=== PATIENT | female | born 1980 | race Caucasian/White ===

== ENCOUNTER 2017-03-08 06:20 | Emergency (ER) | payer MEDICARE ==
[~2017-03-08] VITALS: Ht 157.5 cm; Wt 63.6 kg
[~2017-03-08 06:20] MED LIST: CYMBALTA 60MG60 MG; ESTRACE 1MG1 MG/TAB PO; ESTRACE2 MG PO; LEVOXYL0.075 MG PO; MACRODANTIN100; MAXALT10 MG PO; MUCINEX 60600 MG/TA1 PO; MULTI VITAMINS1 TAB PO; NORCO 325 MG-51 TAB PO; OMNICEF 300MG300 MG PO; PERCOCET 325 MG1 TA2 PO; PREDNISONE20 MG PO; SOMA250 MG PO; TOPAMAX200 MG PO; VITAMIN D 400400 IU PO; ZITHROMAX500 M2 PO; ZOFRAN 4MG T4 MG/TAB PO; ZOFRAN ODT4 MG PO; ZOMIG5 MG PO
[2017-03-08 06:22] VITALS: TEMP 98.2
[2017-03-08 07:15] LABS: BASO % 0.2 % (0.0-2.0); GRAN # 4.7 (1.4-6.5); HEMATOCRIT 42.5 % (37.0-47.0); HEMOGLOBIN 14.2 g/dl (12.5-16.0); LYMPH % 17.3 % (20.0-51.0); MEAN CELL VOLUME 83 fl (80.0-100.0); MEAN CORPUSCULAR HEMOGLOBIN 28 pg (27.0-31.0); MEAN CORPUSCULAR HGB CONC 33 g/dl (33.0-37.0); MEAN PLATELET VOLUME 11.2 fl (7.4-10.4); MONO % 0.2 % (1.7-9.3); PLATELET COUNT 283 K/mm3 (130-400); WHITE BLOOD COUNT 5.7 K/mm3 (4.8-10.8)
[2017-03-08 07:18] LABS: ADJUSTED CALCIUM 10.2 mg/dL (8.4-10.2); ALBUMIN 4.6 gm/dL (3.5-5.0); BILIRUBIN,TOTAL 0.6 mg/dL (0.0-1.0); CALCIUM 10.7 mg/dL (8.4-10.2); CREATININE, serum 0.74 mg/dL (0.52-1.25); TOTAL PROTEIN 7.1 gm/dL (6.4-8.2)
[2017-03-08] MEDS ORDERED: ZOFRAN ODT4 MG PO (07:39)
[2017-03-08 08:14] VITALS: BP 102/53; PULSE 103
== END 2017-03-08 08:16 | disposition home or self-care (01) ==
LOC: COL.ER 06:20
PROVIDERS: Family Medicine
DX: G43.909 Migraine, unspecified, not intractable, without status migrainosus (principal); E86.0 Dehydration; K52.9 Noninfective gastroenteritis and colitis, unspecified; G40.909 Epilepsy, unspecified, not intractable, without status epilepticus
CPT/HCPCS: J0595; J1885; J2405; J7030

== ENCOUNTER 2017-04-29 22:33 | Observation (INO) | payer MEDICARE ==
[~2017-04-29] VITALS: Ht 157.5 cm; Wt 63.6 kg
[2017-04-29] MEDS ORDERED: BACTRIM DS 8001 TAB PO (22:40)
[2017-04-29 23:13] LABS: BASO % 0.1 % (0.0-2.0); EOS % 0.2 % (0-4.0); GRAN # 11.5 (1.4-6.5); GRAN % 89.2 % (42.2-75.2); HEMATOCRIT 42.1 % (37.0-47.0); HEMOGLOBIN 13.4 g/dl (12.5-16.0); LYMPH # 1.1 (1.2-3.4); LYMPH % 8.6 % (20.0-51.0); MEAN CELL VOLUME 88 fl (80.0-100.0); MEAN CORPUSCULAR HEMOGLOBIN 28 pg (27.0-31.0); MEAN CORPUSCULAR HGB CONC 32 g/dl (33.0-37.0); MEAN PLATELET VOLUME 10.6 fl (7.4-10.4); MONO # 0.1 (0.1-0.6); PLATELET COUNT 284 K/mm3 (130-400); RED BLOOD COUNT 4.79 M/mm3 (4.10-5.30); REDCELL DISTRIBUTION WIDTH-CV 13.3 % (11.5-14.5); WHITE BLOOD COUNT 12.9 K/mm3 (4.8-10.8)
[2017-04-29 23:22] LABS: ALBUMIN 4.7 gm/dL (3.5-5.0); BILIRUBIN,TOTAL 0.7 mg/dL (0.0-1.0); CALCIUM 9.6 mg/dL (8.4-10.2); CREATININE, serum 0.76 mg/dL (0.52-1.25); POTASSIUM 3.7 mmol/L (3.4-5.0); TOTAL PROTEIN 7.4 gm/dL (6.4-8.2)
[2017-04-29 23:38] LABS: PROLACTIN 86.9 ng/mL (3.0-18.6)
[2017-04-30] MEDS ORDERED: SYNTHROID0.075 MG/T PO (04:05)
[2017-04-30 04:06] LABS: PH 8 (5-8); SQUAMOUS EPITHELIAL 0-2 /hpf; URINE APPEARANCE Clear; URINE BACTERIA None Seen /hpf; URINE BILIRUBIN Negative (NEGATIVE); URINE BLOOD Negative (NEGATIVE); URINE COLOR Yellow; URINE GLUCOSE Negative (NEGATIVE); URINE KETONE Negative (NEGATIVE); URINE RBC None Seen /hpf; URINE UROBILINOGEN Negative (NEGATIVE); URINE WBC 0-2 /hpf
[2017-04-30 08:27] VITALS: BP 115/60; PULSE 95; TEMP 98.7
[2017-04-30 12:00] VITALS: BP 98/59; PULSE 87; TEMP 98.3
[2017-04-30 13:55] LABS: MEAN CELL VOLUME 86 fl (80.0-100.0); MEAN CORPUSCULAR HGB CONC 33 g/dl (33.0-37.0); MEAN PLATELET VOLUME 10.6 fl (7.4-10.4); PLATELET COUNT 216 K/mm3 (130-400); RED BLOOD COUNT 3.97 M/mm3 (4.10-5.30); REDCELL DISTRIBUTION WIDTH-CV 13.1 % (11.5-14.5); WHITE BLOOD COUNT 6.9 K/mm3 (4.8-10.8)
[2017-04-30 13:56] LABS: HEMATOCRIT 34.2 % (37.0-47.0); HEMOGLOBIN 11.3 g/dl (12.5-16.0); MEAN CORPUSCULAR HEMOGLOBIN 28 pg (27.0-31.0)
[2017-04-30 16:18] VITALS: BP 106/61; PULSE 97; TEMP 99.2
[2017-04-30 20:00] VITALS: BP 113/62; PULSE 92; TEMP 98.4
[2017-04-30 23:33] VITALS: BP 102/52; PULSE 82; TEMP 97.9
[2017-05-01 04:00] VITALS: BP 107/72; PULSE 80; TEMP 97.6
[2017-05-01 10:50] LABS: CALCIUM 8.4 mg/dL (8.4-10.2); CREATININE, serum 0.71 mg/dL (0.52-1.25); POTASSIUM 3.7 mmol/L (3.4-5.0)
[2017-05-01 11:21] VITALS: BP 96/50; PULSE 77; TEMP 98.4
[2017-05-01] MEDS ORDERED: MIDRIN 325 MG-11 CAP PO (14:03)
[2017-05-01] MEDS ORDERED: KEPPRA 500MG500 MG PO (14:04)
[2017-05-01] MEDS ORDERED: IMITREX 6M6 MG/0.5 M SQ (14:06)
[2017-05-01] MEDS ORDERED: MAG-OX 400400 MG/TAB PO (14:06)
[2017-05-01] MEDS ORDERED: OMNICEF 300MG300 MG PO (14:08)
[2017-05-01 15:54] VITALS: BP 98/57; PULSE 73; TEMP 97.5
== END 2017-05-01 19:17 | disposition home or self-care (01) ==
LOC: COL.ER 22:33 → MEDICAL 04-30 02:00
PROVIDERS: Family Medicine; Nurse Practitioner Family; Physician Assistant
DX: R56.9 Unspecified convulsions (principal); G43.909 Migraine, unspecified, not intractable, without status migrainosus; R11.0 Nausea; N39.0 Urinary tract infection, site not specified; E03.9 Hypothyroidism, unspecified; F43.10 Post-traumatic stress disorder, unspecified; E55.9 Vitamin D deficiency, unspecified; Z98.84 Bariatric surgery status; K27.9 Peptic ulcer, site unspecified, unspecified as acute or chronic, without hemorrhage or perforation
CPT/HCPCS: 99239; G0378; J0595; J0696; J1170; J1200; J1885; J1953; J2060; J2405; J3030; J7030

== ENCOUNTER → 2017-08-31 | Outpatient (CLI) | payer MEDICARE ==
[~2017-08-31] MED LIST changes: +BACTRIM DS 8001 TAB PO; +IMITREX 6M6 MG/0.5 M SQ; +KEPPRA 500MG500 MG PO; +MAG-OX 400400 MG/TAB PO; +MIDRIN 325 MG-11 CAP PO; +SYNTHROID0.075 MG/T PO
[2017-08-31 13:40] LABS: AMPHETAMINE URINE NEGATIVE; BARBITURATES URINE NEGATIVE; BENZODIAZEPINES URINE POSITIVE; BUPRENORPHINE URINE NEGATIVE; METHADONE URINE NEGATIVE; OPIATES URINE NEGATIVE; OXYCODONE URINE NEGATIVE; PHENCYCLIDINE URINE NEGATIVE; PROPOXYPHENE URINE NEGATIVE; THC CANNABINOIDS URINE NEGATIVE
== END ==
LOC: COL.LAB 13:04
PROVIDERS: Counselor
DX: Z13.89 Encounter for screening for other disorder (principal); Z79.899 Other long term (current) drug therapy

== ENCOUNTER 2017-11-28 09:15 | Emergency (ER) | payer MEDICARE ==
[~2017-11-28] VITALS: Ht 157.5 cm; Wt 59.1 kg
[2017-11-28 10:17] LABS: INFLUENZA A NEGATIVE; INFLUENZA B NEGATIVE
[2017-11-28 11:26] VITALS: BP 121/71; PULSE 106; TEMP 98
== END 2017-11-28 11:27 | disposition home or self-care (01) ==
LOC: COL.ER 09:15
PROVIDERS: Emergency Medicine
DX: J11.1 Influenza due to unidentified influenza virus with other respiratory manifestations (principal); G43.909 Migraine, unspecified, not intractable, without status migrainosus; Z86.73 Personal history of transient ischemic attack (TIA), and cerebral infarction without residual deficits; Z90.710 Acquired absence of both cervix and uterus; Z98.84 Bariatric surgery status; Z98.890 Other specified postprocedural states
CPT/HCPCS: J1885

== ENCOUNTER → 2018-04-04 | Outpatient (CLI) | payer MEDICARE ==
[~2018-04-04] MED LIST changes: +IBU800 M1 PO
== END ==
LOC: MHCPAIN 09:36
DX: G89.29 Other chronic pain (principal); M47.817 Spondylosis without myelopathy or radiculopathy, lumbosacral region; M53.3 Sacrococcygeal disorders, not elsewhere classified
CPT/HCPCS: G0463

== ENCOUNTER → 2018-04-04 | Outpatient (CLI) | payer MEDICARE ==
[~2018-04-04] MED LIST changes: -IBU800 M1 PO
== END ==
LOC: MHCPAIN 09:39
DX: G89.29 Other chronic pain (principal); M47.817 Spondylosis without myelopathy or radiculopathy, lumbosacral region; M53.3 Sacrococcygeal disorders, not elsewhere classified
CPT/HCPCS: G0463

== ENCOUNTER 2018-04-17 08:58 | Emergency (ER) | payer MEDICARE ==
[~2018-04-17] VITALS: Ht 157.5 cm; Wt 63.6 kg
[2018-04-17 09:12] VITALS: BP 131/57; TEMP 97.2
[2018-04-17] MEDS ORDERED: IBU800 M1 PO (10:00)
[2018-04-17 10:17] VITALS: PULSE 94
== END 2018-04-17 10:16 | disposition home or self-care (01) ==
LOC: COL.ER 08:58
DX: L55.0 Sunburn of first degree (principal); G43.909 Migraine, unspecified, not intractable, without status migrainosus; Z86.73 Personal history of transient ischemic attack (TIA), and cerebral infarction without residual deficits; Z90.710 Acquired absence of both cervix and uterus; Z98.84 Bariatric surgery status; Z98.890 Other specified postprocedural states
CPT/HCPCS: J1885; J2405

== ENCOUNTER → 2018-04-20 | Outpatient (CLI) | payer MEDICARE ==
[~2018-04-20] MED LIST changes: +IBU800 M1 PO
== END ==
LOC: MHCPAIN 08:14
DX: M47.817 Spondylosis without myelopathy or radiculopathy, lumbosacral region (principal); M51.46 Schmorl's nodes, lumbar region
CPT/HCPCS: J1040; Q9967

== ENCOUNTER → 2018-05-19 | Outpatient (CLI) | payer MEDICARE | LOC: MHCPAIN 08:49 | DX: G89.29 Other chronic pain (principal); M47.817 Spondylosis without myelopathy or radiculopathy, lumbosacral region; M53.3 Sacrococcygeal disorders, not elsewhere classified; M54.9 Dorsalgia, unspecified | CPT/HCPCS: G0463 ==

== ENCOUNTER → 2018-06-09 | Outpatient (CLI) | payer MEDICARE | LOC: COL.RAD 14:42 | DX: N30.00 Acute cystitis without hematuria (principal); Z90.49 Acquired absence of other specified parts of digestive tract; Z90.710 Acquired absence of both cervix and uterus; Z98.84 Bariatric surgery status ==

== ENCOUNTER → 2018-06-12 | Outpatient (CLI) | payer MEDICARE | LOC: MC.RAD 09:22 | DX: Z12.31 Encounter for screening mammogram for malignant neoplasm of breast (principal); Z98.82 Breast implant status ==

== ENCOUNTER 2018-06-28 14:30 | Outpatient (RCR) | payer MEDICARE | END 2018-07-23 | disposition still patient (30) | LOC: WSPT | DX: M47.817 Spondylosis without myelopathy or radiculopathy, lumbosacral region (principal); M53.3 Sacrococcygeal disorders, not elsewhere classified | CPT/HCPCS: G8978-GP; G8979-GP ==

== ENCOUNTER → 2018-07-18 | Outpatient (CLI) | payer MEDICARE | LOC: MHCPAIN 13:22 | DX: G89.29 Other chronic pain (principal); M47.817 Spondylosis without myelopathy or radiculopathy, lumbosacral region; M54.16 Radiculopathy, lumbar region; M53.3 Sacrococcygeal disorders, not elsewhere classified | CPT/HCPCS: G0463 ==

== ENCOUNTER → 2018-07-20 | Outpatient (CLI) | payer MEDICARE | LOC: MHCPAIN 09:28 | DX: M47.24 Other spondylosis with radiculopathy, thoracic region (principal) ==

== ENCOUNTER → 2018-07-26 | Outpatient (CLI) | payer MEDICARE | LOC: MHCPAIN 08:21 | DX: G89.29 Other chronic pain (principal); M47.817 Spondylosis without myelopathy or radiculopathy, lumbosacral region; M53.3 Sacrococcygeal disorders, not elsewhere classified; M47.814 Spondylosis without myelopathy or radiculopathy, thoracic region; M54.9 Dorsalgia, unspecified | CPT/HCPCS: G0463 ==

== ENCOUNTER 2018-08-02 08:56 | Emergency (ER) | payer MEDICARE ==
[~2018-08-02] VITALS: Ht 157.5 cm; Wt 63.6 kg
[2018-08-02 09:08] VITALS: BP 115/68; TEMP 97.8
[2018-08-02 11:22] VITALS: PULSE 68
== END 2018-08-02 11:22 | disposition home or self-care (01) ==
LOC: COL.ER 08:56
DX: G43.909 Migraine, unspecified, not intractable, without status migrainosus (principal); E03.9 Hypothyroidism, unspecified; Z79.52 Long term (current) use of systemic steroids
CPT/HCPCS: J0595; J1885; J2405

== ENCOUNTER → 2018-08-10 | Outpatient (CLI) | payer MEDICARE | LOC: MHCPAIN 09:36 | DX: M47.814 Spondylosis without myelopathy or radiculopathy, thoracic region (principal); M54.16 Radiculopathy, lumbar region ==

== ENCOUNTER → 2018-08-14 | Outpatient (CLI) | payer MEDICARE | LOC: MHCPAIN 08:22 | DX: G89.29 Other chronic pain (principal); M47.817 Spondylosis without myelopathy or radiculopathy, lumbosacral region; M47.814 Spondylosis without myelopathy or radiculopathy, thoracic region | CPT/HCPCS: G0463 ==

== ENCOUNTER → 2018-08-17 | Outpatient (CLI) | payer MEDICARE | LOC: MHCPAIN 08:35 | DX: M47.814 Spondylosis without myelopathy or radiculopathy, thoracic region (principal) | CPT/HCPCS: J1100; J2250; J3010 ==

== ENCOUNTER → 2018-08-24 | Outpatient (CLI) | payer MEDICARE | LOC: MHCPAIN 08:38 | DX: M47.814 Spondylosis without myelopathy or radiculopathy, thoracic region (principal); M54.9 Dorsalgia, unspecified | CPT/HCPCS: J1100; J2250; J3010 ==

== ENCOUNTER → 2018-10-23 | Outpatient (CLI) | payer MEDICARE | LOC: MHCPAIN 08:21 | DX: G89.29 Other chronic pain (principal); M47.817 Spondylosis without myelopathy or radiculopathy, lumbosacral region; M53.3 Sacrococcygeal disorders, not elsewhere classified; M47.814 Spondylosis without myelopathy or radiculopathy, thoracic region | CPT/HCPCS: G0463 ==

== ENCOUNTER 2018-11-18 18:49 | Inpatient (IN) | payer MEDICARE ==
[~2018-11-18] VITALS: Ht 152.4 cm; Wt 60.9 kg
[2018-11-18 21:37] LABS: ALBUMIN 3.5 gm/dL (3.5-5.0); BASO % 0.9 % (0.0-2.0); BILIRUBIN,TOTAL 0.2 mg/dL (0.0-1.0); CALCIUM 8.7 mg/dL (8.4-10.2); CREATININE, serum 0.58 mg/dL (0.52-1.25); EOS # 0.1 (0.0-0.7); EOS % 1.9 % (0-4.0); GRAN # 2.6 (1.4-6.5); HEMOGLOBIN 10.9 g/dl (12.5-16.0); LYMPH % 23.9 % (20.0-51.0); MEAN CELL VOLUME 85 fl (80.0-100.0); MEAN CORPUSCULAR HEMOGLOBIN 29 pg (27.0-31.0); MEAN CORPUSCULAR HGB CONC 34 g/dl (33.0-37.0); MEAN PLATELET VOLUME 10.7 fl (7.4-10.4); MONO # 0.4 (0.1-0.6); MONO % 8.5 % (1.7-9.3); PLATELET COUNT 123 K/mm3 (130-400); RED BLOOD COUNT 3.77 M/mm3 (4.10-5.30); REDCELL DISTRIBUTION WIDTH-CV 13.8 % (11.5-14.5)
[2018-11-18 21:53] LABS: PROLACTIN 17.5 ng/mL (3.0-18.6)
[2018-11-19] VITALS (464 sets, daily range): BP systolic 91–131; BP diastolic 55–72; PULSE 55–85; TEMP 97.9–98.5; O2SAT 83–100
[2018-11-19] MEDS ORDERED: ZOMIG5 MG PO (01:53)
[2018-11-19] MEDS ORDERED: LEXAPRO20 MG PO (01:53)
[2018-11-19] MEDS ORDERED: NATURAL IRON65 MG PO (04:37)
[2018-11-19] MEDS ORDERED: VITAMIN B COMPL1 SGL PO (04:37)
[2018-11-19] MEDS ORDERED: PROAMATINE10 MG PO (05:48)
--- NOTE | 2018-11-19 09:00 | NUR ---
Pt arrived to room at this time via cart with ER staff. Awake and alert, able to answer all orientation qeustions but appears tired and c/o pain to R back of eye and headache area. Will get oriented to room and continue to monitor.
[2018-11-19 09:18] LABS: BASO % 0.3 % (0.0-2.0); GRAN # 2.1 (1.4-6.5); GRAN % 71.6 % (42.2-75.2); HEMATOCRIT 39.4 % (37.0-47.0); LYMPH # 0.7 (1.2-3.4); MEAN CELL VOLUME 86 fl (80.0-100.0); MEAN CORPUSCULAR HEMOGLOBIN 28 pg (27.0-31.0); MEAN CORPUSCULAR HGB CONC 33 g/dl (33.0-37.0); MEAN PLATELET VOLUME 11.7 fl (7.4-10.4); MONO # 0.2 (0.1-0.6); MONO % 6.1 % (1.7-9.3); PLATELET COUNT 193 K/mm3 (130-400); RED BLOOD COUNT 4.56 M/mm3 (4.10-5.30); REDCELL DISTRIBUTION WIDTH-CV 13.3 % (11.5-14.5)
[2018-11-19 09:22] LABS: ALBUMIN 4.1 gm/dL (3.5-5.0); BILIRUBIN,TOTAL 0.3 mg/dL (0.0-1.0); CALCIUM 9.6 mg/dL (8.4-10.2); CREATININE, serum 0.56 mg/dL (0.52-1.25); TOTAL PROTEIN 6.9 gm/dL (6.4-8.2)
[2018-11-19 09:38] LABS: HEMOGLOBIN 12.9 g/dl (12.5-16.0)
[2018-11-19 09:44] LABS: COLLECTION METHOD CLEAN CATCH
[2018-11-19 09:52] LABS: MUCOUS Present /lpf; PH 7 (5-8); URINE APPEARANCE Hazy; URINE BACTERIA None Seen /hpf; URINE BILIRUBIN Negative (NEGATIVE); URINE BLOOD Negative (NEGATIVE); URINE COLOR Yellow; URINE GLUCOSE Negative (NEGATIVE); URINE KETONE Negative (NEGATIVE); URINE LEUKOCYTE ESTERASE Negative (NEGATIVE); URINE NITRATE Negative (NEGATIVE); URINE PROTEIN(semi-quant) 2+ (NEGATIVE); URINE UROBILINOGEN Negative (NEGATIVE)
--- NOTE | 2018-11-19 10:48 | NUR ---
Plan to return home with Friend Awilda's support who will also transport. Pt reports that she is apart of the safe home programs and has a PPOF against her ex-. PT indicated that the shoe caser is Vikki at the crisis center . SW left message for case work who will follow-up on Tuesday. DPOA is Jennifer Roblero . Patient safety check complete, pt admits to SII approx a month ago. Denies any SII currently. Denies any HII recent or remote. PT indicated that she has an active therapist that she works with for depression dx and symp and reports recent down swing in depression onset. Neuro Dr. Smith. Pt reports that she has two young daughters that she shares custody with the ex-spouse and the children are currently with him. Pt indicated that they have a [place] location [place] [employer]. Patient does not present as a harm to herself or others and reports that she does not want to . Recommended that pt creates safety plan with primary therapist. Pt reports that she use [facility] for RX. PCP Dr. Encinas, and use a cane-prn and glasses. SW will continue to follow if additonal needs arise.
--- NOTE | 2018-11-19 13:15 | NUR ---
REPORT RECEIVED FROM LEV RN
--- NOTE | 2018-11-19 16:23 | NUR ---
REPORT GIVEN TO JENNIFER ADHIKARI
--- NOTE | 2018-11-19 17:30 | NUR ---
Patient is resting in bed. She arrived to floor via wheel chair. Denies nausea at this time. Stated still havine headache. Oriented patient to room. She has some visitors with her. no other chagnes at this time. Call light within reach.
--- NOTE | 2018-11-19 20:03 | NUR ---
At 1951 pt. started having seizure. Started noted by family friend at bedside. Family friend reported she noticed twitching to rt. eye and then became stiff. This nurse entered the room at 1952, ativan given IV. Remained with pt. through the seizure. Seizure ended at 1956. Pt. woke at 1999, was slightly disoriented. Pt. resting now, vitals stable.
--- NOTE | 2018-11-19 20:05 | NUR ---
Pt. resting in bed with friend at bedside. Pt. is alert and drowsy. Pt. in a postictal state at this time. Pt. has been oriented, but takes time to reorient after seizure activity. Shift assessment complete. Pt. reports headache pain. Will give meds per orders. Pt. denies further needs, call light within reach.
--- NOTE | 2018-11-19 20:34 | NUR ---
Pt. started having seizure activity at 2019. Dr. Brandon notified. Dr. Brandon gave orders to hold ativan if O2 sat remains stable, and monitor seizure. This seizure activity lasted for 7 minutes. Pt. wakes after seizure to verbal stimuli but is very foggy. Pt. is able to identify orientation. Will continue to monitor.
--- NOTE | 2018-11-19 21:10 | NUR ---
At 2100, Third episode of seizure activity started. Pt. O2 sat remains stable. Seizure activity lasted 8 minutes. Will monitor.
[2018-11-20 05:03] VITALS: BP 118/69; PULSE 64; TEMP 97.2
--- NOTE | 2018-11-20 05:57 | NUR ---
Pt. has slept well through the night. Pt. has not had any more seizure activity through the night. Pt. remains A&OX3. IV to lt. hand remains patent. Pt. denies further needs, call light within reach.
[2018-11-20] MEDS ORDERED: KEPPRA1000 MG PO (07:28)
[2018-11-20 07:33] VITALS: BP 103/67; PULSE 80; TEMP 98
--- NOTE | 2018-11-20 10:02 | NUR ---
Patient resting in bed with a friend at bedside. Patient able to given her date of . Did ask what town she was in. She seems "out of it". Talks minimally. Falls asleep easy. She did shower this am & brush her teeth. New IV attempted by Jennifer DA SILVA-no success. Hospitalist team notified & patient switched to oral Keppra. She took her meds. Patient does report a headache. 05/30-tylenol for pain. Patient friend ordered her a yogurt for breakfast. Will monitor.
[2018-11-20 11:07] VITALS: BP 100/57; PULSE 64; TEMP 98.3
--- NOTE | 2018-11-20 13:54 | NUR ---
SW met with patient during clinical rounding. Patient will dc today after a psych consult. There are no other identified discharge needs at this time. SW will follow for any recommendations from Psych.
--- NOTE | 2018-11-20 14:28 | NUR ---
First visit from the ice carver. No needs right now.
--- NOTE | 2018-11-20 14:51 | NUR ---
Patient resting in bed. Friend at bedside. Patient has no appetite. Tylenol for Headahce. Patient minimally conversive. Awaiting to round
[2018-11-20] MEDS ORDERED: PRISTIQ 50 MG T50 MG PO (16:02)
[2018-11-20 16:03] VITALS: BP 116/73; PULSE 86; TEMP 98.6
--- NOTE | 2018-11-20 17:22 | NUR ---
Patient ready for discharge. rounded, orders obtained. Hospitalist made aware of recommendations. Discharge orders obtained. Patient reviewed all new medications & new scripts. She has a very supportive friend at bedside who will take her home & take care of her. Patient belongings from safe retreieved by domestic housekeeper & given to patient. Patient glad to be going home, we reviewed all follow up appts. Patient wheeled out.
== END 2018-11-20 17:27 | disposition home or self-care (01) | DRG 101 ==
LOC: COL.ER 18:49 → ICU 22:57 → SURG 11-19 16:23
PROVIDERS: Nurse Practitioner Family; Physician Assistant; ADMIT Internal Medicine
DX: G40.409 Other generalized epilepsy and epileptic syndromes, not intractable, without status epilepticus (principal); D61.818 Other pancytopenia; G43.909 Migraine, unspecified, not intractable, without status migrainosus; F41.1 Generalized anxiety disorder; F41.0 Panic disorder [episodic paroxysmal anxiety]; E55.9 Vitamin D deficiency, unspecified; F43.10 Post-traumatic stress disorder, unspecified; Z98.84 Bariatric surgery status; D69.6 Thrombocytopenia, unspecified
CPT/HCPCS: OP; 99223-AI; 99239; J1100; J1170; J1200; J1885; J1953; J2060; J2405; J3030; J7030

== ENCOUNTER 2019-01-05 17:17 | Inpatient (IN) | payer MEDICARE ==
[2019-01-05] VITALS (103 sets, daily range): BP systolic 106; BP diastolic 51; PULSE 103; O2SAT 99–100
[~2019-01-05] VITALS: Ht 152.4 cm; Wt 65.1 kg
[~2019-01-05 17:17] MED LIST changes: +KEPPRA1000 MG PO; +LEXAPRO20 MG PO; +NATURAL IRON65 MG PO; +PRISTIQ 50 MG T50 MG PO; +PROAMATINE10 MG PO; +VITAMIN B COMPL1 SGL PO
[2019-01-05 17:43] LABS: BASO # 0.1 (0.0-0.2); BASO % 0.4 % (0.0-2.0); GRAN # 22.2 (1.4-6.5); GRAN % 92.4 % (42.2-75.2); HEMATOCRIT 45.9 % (37.0-47.0); HEMOGLOBIN 15.2 g/dl (12.5-16.0); LYMPH # 0.5 (1.2-3.4); MEAN CELL VOLUME 87 fl (80.0-100.0); MEAN CORPUSCULAR HEMOGLOBIN 29 pg (27.0-31.0); MEAN CORPUSCULAR HGB CONC 33 g/dl (33.0-37.0); MEAN PLATELET VOLUME 11.4 fl (7.4-10.4); MONO # 1.1 (0.1-0.6); MONO % 4.5 % (1.7-9.3); PLATELET COUNT 262 K/mm3 (130-400); RED BLOOD COUNT 5.28 M/mm3 (4.10-5.30); REDCELL DISTRIBUTION WIDTH-CV 13.5 % (11.5-14.5)
[2019-01-05 17:45] LABS: INR 1.3 (0.8-3.0)
[2019-01-05 17:50] LABS: ALANINE AMINOTRANSFERASE 713 U/L (9-52); ALBUMIN 4.5 gm/dL (3.5-5.0); ALKALINE PHOSPHATASE 136 U/L (50-136); ANION GAP 15 mmol/L (7-16); BILIRUBIN,TOTAL 0.5 mg/dL (0.0-1.0); BLOOD UREA NITROGEN 27 mg/dL (7-17); CALCIUM 9.9 mg/dL (8.4-10.2); CARBON DIOXIDE 23 mmol/L (22-30); CHLORIDE 104 mmol/L (98-107); CREATINE KINASE 709 U/L (30-135); CREATININE, serum 1.14 mg/dL (0.52-1.25); GLUCOSE 146 mg/dL (74-106); POTASSIUM 4.1 mmol/L (3.4-5.0); SODIUM 142 mmol/L (137-145); TOTAL PROTEIN 8.3 gm/dL (6.4-8.2)
[2019-01-05 17:53] LABS: ALCOHOL(ethanol),MEDICAL < 10 mg/dL
[2019-01-05 17:57] LABS: AST,SGOT 1224 U/L (15-37)
[2019-01-05 18:05] LABS: TROPONIN-I < 0.012 ng/mL (0.000-0.035)
[2019-01-05] MEDS ORDERED: PROAMATINE10 MG PO (18:05)
[2019-01-05 18:10] LABS: PROLACTIN 13.3 ng/mL (3.0-18.6)
[2019-01-05 18:14] LABS: ACETAMINOPHEN < 10 ug/mL (10-30); SALICYLATE < 1.0 mg/dL
[2019-01-05 18:26] LABS: COLLECTION METHOD CLEAN CATCH
[2019-01-05 18:38] LABS: TRICYCLIC ANTIDEPRESS URINE NEGATIVE
[2019-01-05 18:42] LABS: AMORPHOUS CRYSTAL Present /uL; MUCOUS Present /lpf; PH 5 (5-8); URINE APPEARANCE Cloudy; URINE BACTERIA Moderate /hpf; URINE BILIRUBIN Negative (NEGATIVE); URINE BLOOD 2+ (NEGATIVE); URINE COLOR Amber; URINE GLUCOSE Negative (NEGATIVE); URINE KETONE Trace (NEGATIVE); URINE LEUKOCYTE ESTERASE Negative (NEGATIVE); URINE NITRATE Positive (NEGATIVE); URINE PROTEIN(semi-quant) 2+ (NEGATIVE)
[2019-01-05 18:46] LABS: TSH w REFLEX 0.557 uIU/mL (0.465-4.680)
[2019-01-05 19:02] LABS: ARTERIAL BLD GAS O2 SATURATION 90.9 % (92-100); ARTERIAL BLD GAS TCO2 CT 21.1; ARTERIAL BLOOD GAS BASE EXCESS -7.4 (-2-2); ARTERIAL BLOOD GAS HCO3 19.7 meq/L (22-26); ARTERIAL BLOOD GAS PCO2 46.3 mmHg (35-45); ARTERIAL BLOOD GAS PO2 65.2 mmHg (80-100); ARTERIAL BLOOD GAS pH 7.25 (7.35-7.45)
[2019-01-05 20:50] LABS: ARTERIAL BLD GAS O2 SATURATION 95.4 % (92-100); ARTERIAL BLD GAS TCO2 CT 21.1; ARTERIAL BLOOD GAS BASE EXCESS -6.7 (-2-2); ARTERIAL BLOOD GAS HCO3 19.8 meq/L (22-26); ARTERIAL BLOOD GAS PCO2 42.8 mmHg (35-45); ARTERIAL BLOOD GAS PO2 79.6 mmHg (80-100); ARTERIAL BLOOD GAS pH 7.28 (7.35-7.45)
[2019-01-05 21:52] LABS: ARTERIAL BLD GAS O2 SATURATION 98.7 % (92-100); ARTERIAL BLOOD GAS BASE EXCESS -8.6 (-2-2); ARTERIAL BLOOD GAS HCO3 17.8 meq/L (22-26); ARTERIAL BLOOD GAS pH 7.27 (7.35-7.45)
[2019-01-05 21:53] LABS: ARTERIAL BLOOD GAS PO2 256.1 mmHg (80-100)
--- NOTE | 2019-01-05 22:03 | NUR ---
Patient arrived to the unit via stretcher. Patient intubated prior to arrival. Assisted to transfer to ICU bed and attach to all monitors.
--- NOTE | 2019-01-05 22:16 | NUR ---
ABG called to Kiarra BENNETT she said to turn rate up to 22 and fio2 down to 60%. Pt then transported to ICU on transport vent and put on ventilator at current settings. Report given to ICU RT.
--- NOTE | 2019-01-05 22:30 | NUR ---
Dr. Marks and anesthesia here at bedside to place central line and Arterial line. Nurse at bedside to assist.
[2019-01-05 23:36] LABS: ARTERIAL BLD GAS O2 SATURATION 98.3 % (92-100); ARTERIAL BLD GAS TCO2 CT 15.1; ARTERIAL BLOOD GAS BASE EXCESS -8.4 (-2-2); ARTERIAL BLOOD GAS HCO3 14.4 meq/L (22-26); ARTERIAL BLOOD GAS PCO2 22.7 mmHg (35-45); ARTERIAL BLOOD GAS pH 7.42 (7.35-7.45)
[2019-01-05 23:37] LABS: ARTERIAL BLOOD GAS PO2 183.3 mmHg (80-100)
--- NOTE | 2019-01-05 23:50 | NUR ---
Called E-care nurse, Shelley, to report latest ABG results. Can titrate Fi-02 as needed. Also received order to cancel KUB to check 0G placement as that was done with chest x-ray.
[2019-01-06] VITALS (1439 sets, daily range): BP systolic 80–136; BP diastolic 4–587; PULSE 71–120; TEMP 97.8–100.2; O2SAT 63–100
--- NOTE | 2019-01-06 03:54 | NUR ---
BP'S TRENDING DOWN; CURRENTLY RANGING 80'S OVER 40'S. FENTANYL DECREASED PATIENT APPEARS WELL SEDATED AND COMFORTABLE. CALLED E-CARE TO REPORT HYPOTENSION. NOTIFIED THAT [facility] HAS AN ORDER FOR LEVOPHED BUT THIS NURSE WANTED TO VERIFY IF A NS BOLOS MIGHT BE ATTEMPTED BEFORE STARTING LEVOPHED. AWAITING FURTHER ORDERS.
--- NOTE | 2019-01-06 05:10 | NUR ---
Patient becoming restless in bed; attempting to sit up and reach hand towards the tube. Attempted to re-orient at this time, although patient continued to attempt to sit up and reach for tube several more times. Shook head yes when asked if she was in pain. Increased fentanyl drip and sedation for comfort.
[2019-01-06 05:13] LABS: MEAN CELL VOLUME 87 fl (80.0-100.0); MEAN CORPUSCULAR HGB CONC 33 g/dl (33.0-37.0); MEAN PLATELET VOLUME 11.3 fl (7.4-10.4); PLATELET COUNT 207 K/mm3 (130-400); RED BLOOD COUNT 3.76 M/mm3 (4.10-5.30); REDCELL DISTRIBUTION WIDTH-CV 13.6 % (11.5-14.5)
[2019-01-06 05:19] LABS: HEMATOCRIT 32.6 % (37.0-47.0); MEAN CORPUSCULAR HEMOGLOBIN 29 pg (27.0-31.0)
[2019-01-06 05:22] LABS: HEMOGLOBIN 10.8 g/dl (12.5-16.0)
--- NOTE | 2019-01-06 05:34 | NUR ---
Notified E-care of patient's WBC value. Currenlty on several Abx. No further orders at this time.
[2019-01-06 05:35] LABS: ARTERIAL BLD GAS O2 SATURATION 98.3 % (92-100); ARTERIAL BLOOD GAS BASE EXCESS -10.8 (-2-2); ARTERIAL BLOOD GAS HCO3 13.2 meq/L (22-26); ARTERIAL BLOOD GAS PCO2 24.2 mmHg (35-45); ARTERIAL BLOOD GAS pH 7.36 (7.35-7.45)
[2019-01-06 05:35] LABS: ALBUMIN 2.8 gm/dL (3.5-5.0); BILIRUBIN,TOTAL 0.3 mg/dL (0.0-1.0); CALCIUM 8.1 mg/dL (8.4-10.2); CREATININE, serum 0.6 mg/dL (0.52-1.25); MAGNESIUM 1.8 mg/dL (1.6-2.3); PHOSPHOROUS 2.2 mg/dL (2.5-4.5); POTASSIUM 3.4 mmol/L (3.4-5.0); TOTAL PROTEIN 5.3 gm/dL (6.4-8.2)
[2019-01-06 05:36] LABS: ARTERIAL BLOOD GAS PO2 177.8 mmHg (80-100)
[2019-01-06 06:22] LABS: BAND 65 % (0-10); HYPOCHROMIA 1+; LYMPHOCYTE 5 % (20.0-51.0); METAMYELOCYTE 1 % (0-0); NEUTROPHILS 25 % (42.0-75.2); PLATELET ESTIMATE NORMAL (NORMAL)
[2019-01-06 07:10] LABS: BILIRUBIN,DIRECT 0.2 mg/dL (0.0-0.4)
--- NOTE | 2019-01-06 07:10 | NUR ---
Reveived bedside report from JENNIFER Worthy. Patient resting peacfully in bed. Medications and drips varified.
[2019-01-06 07:11] LABS: BILIRUBIN UNCONJUGATED 0.1 mg/dL (0.0-1.1)
--- NOTE | 2019-01-06 16:54 | NUR ---
Patient seemed restless so we asked visitors to wait in the waiting room to give her time to settle down and rest.
--- NOTE | 2019-01-06 17:04 | NUR ---
Did not do sedation vacation at this time. PAtient very restless. HAd to increase sedation at this time.
[2019-01-06 17:34] LABS: ARTERIAL BLD GAS O2 SATURATION 97.4 % (92-100); ARTERIAL BLD GAS TCO2 CT 15.3; ARTERIAL BLOOD GAS BASE EXCESS -9.5 (-2-2); ARTERIAL BLOOD GAS HCO3 14.5 meq/L (22-26); ARTERIAL BLOOD GAS PCO2 26.1 mmHg (35-45); ARTERIAL BLOOD GAS PO2 107.6 mmHg (80-100); ARTERIAL BLOOD GAS pH 7.36 (7.35-7.45)
[2019-01-06 18:02] LABS: CALCIUM 8.4 mg/dL (8.4-10.2); CREATININE, serum 0.49 mg/dL (0.52-1.25); POTASSIUM 3.3 mmol/L (3.4-5.0)
--- NOTE | 2019-01-06 19:05 | NUR ---
Gave report to JENNIFER Worthy. Patients father was in the room participating in report. Patient was resting quietly in bed.
--- NOTE | 2019-01-06 19:10 | NUR ---
Received bedside report from JENNIFER Moreira and JENNIFER Nguyen. Patient care received. Patient's father at bedside. No concerns at this time.
--- NOTE | 2019-01-06 20:00 | NUR ---
Assessment complete; sedation decreased due to moderate sedation level. Responsive to painful stimuli and oral suctioning, however not following commands at this time. Will continue to monitor.
--- NOTE | 2019-01-06 22:17 | NUR ---
Patient restless in bed attempting to sit up and pull at ET tube. This nurse noted that the left wrist restrain was bloody. After removing restraint observed that Arterial line had come out of the artery and was leaking. A small hematoma was felt around the site. Line was removed and pressure held until bleeding stopped. Pulse palpated and hands warm with cap refill < 3. E-ICU notified. No further orders at this time.
--- NOTE | 2019-01-06 22:33 | NUR ---
RN WAS DOING ORAL CARE WITH HER ASSESMENT. PATIENT SUCTIONED FOR SCANT AMOUNT OF TANISH SECRETIONS.
--- NOTE | 2019-01-06 23:30 | NUR ---
Patient occasionally observed attempting to sit up and will raise hands towards mouth. Re-oriented at these times and and reminded that restraints are for safety to protect airway.
[2019-01-07] VITALS (1395 sets, daily range): BP systolic 94–116; BP diastolic 48–83; PULSE 80–126; TEMP 97.5–100; O2SAT 55–100
[2019-01-07 05:10] LABS: ARTERIAL BLD GAS TCO2 CT 18.8; ARTERIAL BLOOD GAS BASE EXCESS -4.3 (-2-2); ARTERIAL BLOOD GAS HCO3 18.1 meq/L (22-26); ARTERIAL BLOOD GAS PCO2 25.2 mmHg (35-45); ARTERIAL BLOOD GAS pH 7.47 (7.35-7.45)
[2019-01-07 05:28] LABS: BASO # 0.1 (0.0-0.2); BASO % 0.4 % (0.0-2.0); GRAN % 87.5 % (42.2-75.2); LYMPH # 0.8 (1.2-3.4); LYMPH % 3.9 % (20.0-51.0); MEAN CELL VOLUME 84 fl (80.0-100.0); MEAN CORPUSCULAR HGB CONC 35 g/dl (33.0-37.0); MEAN PLATELET VOLUME 11.8 fl (7.4-10.4); MONO # 0.7 (0.1-0.6); MONO % 3.4 % (1.7-9.3); PLATELET COUNT 178 K/mm3 (130-400); RED BLOOD COUNT 3.37 M/mm3 (4.10-5.30); REDCELL DISTRIBUTION WIDTH-CV 13.8 % (11.5-14.5)
[2019-01-07 05:29] LABS: HEMATOCRIT 28.3 % (37.0-47.0); HEMOGLOBIN 9.8 g/dl (12.5-16.0); MEAN CORPUSCULAR HEMOGLOBIN 29 pg (27.0-31.0)
[2019-01-07 05:40] LABS: ALBUMIN 2.4 gm/dL (3.5-5.0); BILIRUBIN,TOTAL 0.1 mg/dL (0.0-1.0); CALCIUM 8.5 mg/dL (8.4-10.2); CREATININE, serum 0.49 mg/dL (0.52-1.25); MAGNESIUM 2.1 mg/dL (1.6-2.3); PHOSPHOROUS 1.7 mg/dL (2.5-4.5); POTASSIUM 3.5 mmol/L (3.4-5.0)
--- NOTE | 2019-01-07 05:51 | NUR ---
WBC critical this am. Physician not notified at this time as lab is trending downwards.
--- NOTE | 2019-01-07 05:58 | NUR ---
PER E CARE RESPIRATORY RATE DECREASED TO 16 AFTER ABG RESULTS.
[2019-01-07 06:08] LABS: BAND 38 % (0-10); LYMPHOCYTE 8 % (20.0-51.0); NEUTROPHILS 53 % (42.0-75.2); PLATELET ESTIMATE NORMAL (NORMAL)
--- NOTE | 2019-01-07 06:10 | NUR ---
Recommended by E-ICU to change draw time of valproic acid to immediately before dose to be given. Dose scheduled for noon. Lab draw changed to 11:30.
--- NOTE | 2019-01-07 07:05 | NUR ---
Bedside report given to JENNIFER Nguyen and JENNIFER Moreira. Patient care transfered.
--- NOTE | 2019-01-07 07:15 | NUR ---
Received bedside report from JENNIFER Worthy. Patient was resting quietly in bed. Medications varified.
--- NOTE | 2019-01-07 08:00 | NUR ---
Patient unable to squeeze hands when asked but able to shake head yes that she is in pain. PAtient followed commands when I told her to rest her head back on the pillow. Propofol increased at this time due to increase in aggitation.
[2019-01-07 08:16] LABS: ARTERIAL BLD GAS O2 SATURATION 96.4 % (92-100); ARTERIAL BLD GAS TCO2 CT 18.4; ARTERIAL BLOOD GAS BASE EXCESS -6.5 (-2-2); ARTERIAL BLOOD GAS HCO3 17.5 meq/L (22-26); ARTERIAL BLOOD GAS PCO2 29.7 mmHg (35-45); ARTERIAL BLOOD GAS PO2 91.5 mmHg (80-100); ARTERIAL BLOOD GAS pH 7.39 (7.35-7.45)
--- NOTE | 2019-01-07 09:09 | NUR ---
Had a discussion with Dr. Marks regarding the patients aggitation this morning via phone. Infomred him we had to increase the propofol and fenanyl. When I did that the patients blood pressure dropped to 95/53 with a MAP of 65. Dr. Marks ordered me to give a 500 mL bolus of LR and then check CVP. Dr. Wasserman said he would arrive in 35-45 minutes to speak with patients family.
--- NOTE | 2019-01-07 09:20 | NUR ---
Called Dr. Marks to update him on the patients status. Informed him of the patients low blood pressures, 95/53 and 95/45. Dr. Marks ordered me to give a 500 mL fluid bolus of LR and then check the CVP. When checked CVP was 7. I informed Dr. Marks and he ordered to give another 500 mL fluid bolus of LR over 2 hours. Will continue to monitor patients condition.
--- NOTE | 2019-01-07 09:54 | NUR ---
Checked OG residual, 35 mL. Advanced to 38 mL/hr, goal rate.
--- NOTE | 2019-01-07 10:30 | NUR ---
Decreased to prepare for weening trial for extubation.
--- NOTE | 2019-01-07 10:30 | NUR ---
DC'd due to weening trial for extubation.
--- NOTE | 2019-01-07 10:50 | NUR ---
DC'd to prepare for extubation.
--- NOTE | 2019-01-07 11:30 | NUR ---
PT EXTUBATED TO 3 LPM NC PER W/O INCIDENT. PT FRIEND AT BEDSIDE.
--- NOTE | 2019-01-07 12:00 | NUR ---
Patient extubated at 1132 per orders and restraints dc'd. All sedation and tube feeds remain off. Patient restless and confused following extubation. Placed on 3L nasal cannula and will continue to monitor patient.
--- NOTE | 2019-01-07 13:45 | NUR ---
Patient very restless at this time. Called Dr. Snowden and updated her on the patients status. Dr. Snowden ordered us to give her 2mg of ativan. Asked family and friends to leave the room at this time. Will continue to monitor patient.
[2019-01-07 13:58] LABS: ARTERIAL BLD GAS TCO2 CT 21.5; ARTERIAL BLOOD GAS BASE EXCESS -2.6 (-2-2); ARTERIAL BLOOD GAS HCO3 20.6 meq/L (22-26); ARTERIAL BLOOD GAS PCO2 30.2 mmHg (35-45); ARTERIAL BLOOD GAS PO2 52.8 mmHg (80-100); ARTERIAL BLOOD GAS pH 7.45 (7.35-7.45)
--- NOTE | 2019-01-07 19:05 | NUR ---
Report given to Zaynab RODRIGUEZ and care transfered.
--- NOTE | 2019-01-07 19:05 | NUR ---
Received report from JENNIFER Moreira and JENNIFER Nguyen; patient care received. Patient's friends at bedside. Patient is alert but confused. Unable to follow commands to squeeze hands. Unable to verbalize a coherent thought or word, except to say [place], when asked where she lives. Patient mumbles or does not respond at all to most verbal questions. Patient observed multiple times reaching up towards face to remove nasal cannula. Attempted to re-orient at this time. Will continue to monitor. Bed alarm activated.
[2019-01-07 19:18] LABS: MAGNESIUM 1.9 mg/dL (1.6-2.3); PHOSPHOROUS 2.6 mg/dL (2.5-4.5); POTASSIUM 3.4 mmol/L (3.4-5.0)
--- NOTE | 2019-01-07 23:30 | NUR ---
Patients respirations noted to be increasing into the 40's. Continue to be confused with periods of restlesness. Will frequently pull at SPo2 monitor and remove nasal cannula. RT notified and at bedside. Lung sounds coarse in all kaur but not different from previous assessment. 02 ranging 92-95% on 5L. Called e-ICU to update. Recommended to administer 2nd dose of ativan and assess if this is effective at decreasing respirations and restlessness.
[2019-01-08] VITALS (1347 sets, daily range): BP systolic 89–137; BP diastolic 48–99; PULSE 59–109; TEMP 97.8–99.1; O2SAT 73–100
--- NOTE | 2019-01-08 00:14 | NUR ---
Dr. Zabala E-ICU physician updated via telephone. Recommended starting Precedex drip. Called Dr. Marks to ask permission to start this medication; received permission per Dr. Marks.
--- NOTE | 2019-01-08 02:54 | NUR ---
E-Icu notified regarding patient's continued tachypnea. On precedex drip at lowest dose. 02 saturations have maintained around 95% on 5L. BP's have been stable. Nurse to notify Dr. Zaabla and will camera in on patient.
--- NOTE | 2019-01-08 03:15 | NUR ---
RESULTS OF ABG CALLED TO E CARE. PT PLACED ON BIPAP, REPEAT ABG TO BE DRAWN IN 1 HOUR.
[2019-01-08 03:16] LABS: ARTERIAL BLD GAS O2 SATURATION 91.2 % (92-100); ARTERIAL BLD GAS TCO2 CT 22.3; ARTERIAL BLOOD GAS BASE EXCESS -1.3 (-2-2); ARTERIAL BLOOD GAS HCO3 21.4 meq/L (22-26); ARTERIAL BLOOD GAS PCO2 29.7 mmHg (35-45); ARTERIAL BLOOD GAS PO2 59.5 mmHg (80-100); ARTERIAL BLOOD GAS pH 7.48 (7.35-7.45)
--- NOTE | 2019-01-08 03:32 | NUR ---
Patient will occasionally mumble incoherently or make motions to sit up and move extremities, however will not follow commands. Responts to painful stimuli. Currenlty on lowest dose of precedex. E-ICU updated.
--- NOTE | 2019-01-08 03:35 | NUR ---
Patient placed on Bipap. Dr. Zabala on monitor to observe patient. Will obtain ABG in one hour.
[2019-01-08 04:46] LABS: ARTERIAL BLD GAS O2 SATURATION 96.7 % (92-100); ARTERIAL BLD GAS TCO2 CT 24.4; ARTERIAL BLOOD GAS BASE EXCESS 0.3 (-2-2); ARTERIAL BLOOD GAS HCO3 23.4 meq/L (22-26); ARTERIAL BLOOD GAS PCO2 32.5 mmHg (35-45); ARTERIAL BLOOD GAS PO2 98.1 mmHg (80-100); ARTERIAL BLOOD GAS pH 7.48 (7.35-7.45)
[2019-01-08 05:25] LABS: HEMOGLOBIN 10.5 g/dl (12.5-16.0); MEAN CELL VOLUME 83 fl (80.0-100.0); MEAN CORPUSCULAR HEMOGLOBIN 29 pg (27.0-31.0); MEAN CORPUSCULAR HGB CONC 35 g/dl (33.0-37.0); MEAN PLATELET VOLUME 11.6 fl (7.4-10.4); PLATELET COUNT 179 K/mm3 (130-400); RED BLOOD COUNT 3.65 M/mm3 (4.10-5.30); REDCELL DISTRIBUTION WIDTH-CV 14.1 % (11.5-14.5)
[2019-01-08 05:27] LABS: HEMATOCRIT 30.1 % (37.0-47.0)
[2019-01-08 05:37] LABS: ALBUMIN 2.7 gm/dL (3.5-5.0); BILIRUBIN,TOTAL 0.2 mg/dL (0.0-1.0); CALCIUM 8.5 mg/dL (8.4-10.2); CREATININE, serum 0.47 mg/dL (0.52-1.25); PHOSPHOROUS 3.5 mg/dL (2.5-4.5); POTASSIUM 3.8 mmol/L (3.4-5.0); TOTAL PROTEIN 5.4 gm/dL (6.4-8.2)
[2019-01-08 05:44] LABS: BAND 21 % (0-10); LYMPHOCYTE 7 % (20.0-51.0); NEUTROPHILS 69 % (42.0-75.2)
[2019-01-08 05:45] LABS: PLATELET ESTIMATE NORMAL (NORMAL); SCHISTOCYTES 1+
--- NOTE | 2019-01-08 06:14 | NUR ---
Has had multiple incontinent stools this evening. Called [facility]pt[facility]list and received order to send a C-diff sample. Sample sent at this time.
--- NOTE | 2019-01-08 06:18 | NUR ---
E-icu nurse notified regarding critical WBC count of 20.6.
--- NOTE | 2019-01-08 07:24 | NUR ---
Bedside report received from JENNIFER Worthy.
--- NOTE | 2019-01-08 07:30 | NUR ---
Bedside report given to JENNIFER Luther. Patient care transfered.
--- NOTE | 2019-01-08 07:30 | NUR ---
Assessment complete, patient resting in bed on bipap, tachypneic, patient won't open her eyes, does squeeze left hand when asked, when asked to squeeze right hand, patient states "I don't want to, it hurts." Call light within reach.
--- NOTE | 2019-01-08 08:36 | NUR ---
Message left for Sandra, patient's friend/DPOA regarding need for reintubation.
--- NOTE | 2019-01-08 09:08 | NUR ---
Patient taken to CT via bed on monitor, RT Ronnie with this RN.
--- NOTE | 2019-01-08 09:35 | NUR ---
Back from CT.
--- NOTE | 2019-01-08 09:55 | NUR ---
Dr. Marks here to intubate patient.
--- NOTE | 2019-01-08 09:58 | NUR ---
0958- 60 mg propofol prior to intubation. 1001- 60 mg Succinylcholine given. 1002 - 7.5 ETT, 23 at the lip. 1005- 40 mg propofol given. 1015- Propofol gtt initiated at 5mcg/kg/min=17.7ml/hr.
--- NOTE | 2019-01-08 10:22 | NUR ---
ASSISTED DR. ALEMAN WITH INTUBATION. PT INTUBATED WITH 7.5ETT. PT TOLERATED WELL.
--- NOTE | 2019-01-08 11:03 | NUR ---
WILTON attended clinical rounding. Patient is intubated so unable to discuss discharge plan. According to the chart and patients last admission her PCP is Dr Katie Encinas and she obtains her medications from [facility]. patient has a PPOF from her ex who she shares custody of her children with. She also has a rn case manager hospice, Vikki, at the crisis center. Patients DPOA is Jennifer Annika however we do not have a copy on the chart, wilton discussed this with Jennifer who said she will run to patients house and find it to bring to the hosptial. Jennifer reports patient has an adult son, Yung Espinoza [phone], that we are able to update. Nurse informed. WILTON will continue to follow. is looking into transfer to [facility] if accepted.
[2019-01-08 11:31] LABS: ARTERIAL BLD GAS O2 SATURATION 96.5 % (92-100); ARTERIAL BLD GAS TCO2 CT 22.3; ARTERIAL BLOOD GAS BASE EXCESS -1.1 (-2-2); ARTERIAL BLOOD GAS HCO3 21.5 meq/L (22-26); ARTERIAL BLOOD GAS PO2 91.6 mmHg (80-100); ARTERIAL BLOOD GAS pH 7.49 (7.35-7.45)
--- NOTE | 2019-01-08 12:21 | NUR ---
PT'S SETTINGS CHANGED PER DR. ALEMAN AT THIS TIME.
--- NOTE | 2019-01-08 12:52 | NUR ---
Dr. Marks notified of hypotension, discussed propofol gtt decreased to 2.5 mcg/kg/min.
--- NOTE | 2019-01-08 13:08 | NUR ---
Patients friend is unable to find DPOA paperwork. SW called patients pcp dr Encinas and left vm as well as dr Gautam office who does not have it. SW called Crisis center where patient has reported she has a transplant case manager. They are looking for DPOA and trust and estates attorney information and will contact pediatric social worker back. Patients father is on the way however she has two adult children that are not in contact with patient that would need to make medical decisions if DPOA is not found. SW will continue to follow.
--- NOTE | 2019-01-08 15:45 | NUR ---
Nurse reports that patients friend Jennifer found the DPOA at [place] and brought a copy here. SW will continue to follow.
--- NOTE | 2019-01-08 15:45 | NUR ---
Copy of DPOA paperwork placed on chart.
--- NOTE | 2019-01-08 17:15 | NUR ---
Patient coughing against ventilator, shakes head "no" when asked to open her eyes or squeeze my hands, finally does squeeze this RN hands, left flask carrier stronger than right, never does open her eyes. LAMBETR Flores at bedside.
--- NOTE | 2019-01-08 18:30 | NUR ---
Librado Moore CRNA here for LP. Time out performed. Patient repositioned to left side.
--- NOTE | 2019-01-08 19:00 | NUR ---
Bedside report given to JENNIFER Worthy.
[2019-01-08 19:56] LABS: GLUCOSE,CSF 51 mg/dL (40-70); TOTAL PROTEIN,CSF 29 mg/dL (15-45)
[2019-01-08 20:25] LABS: CSF APPEARANCE CLEAR; CSF COLOR COLORLESS; CSF RBC 4 /mm3 (0-0)
[2019-01-08 20:26] LABS: CSF MONONUCLEAR 0 % (70-100); CSF POLYMORPHONUCLEAR 0 % (0-6)
--- NOTE | 2019-01-08 20:55 | NUR ---
Dr. Duran at bedside to see patient.
--- NOTE | 2019-01-08 23:30 | NUR ---
Patient now opening eyes spontaneously. Able to squeeze nurse's hands on command. Observed moving all extremities. When asked questions patient would onlyshake head no, and did not appear to be resonding appropriately to the questions. Will continue to monitor.
[2019-01-09] VITALS (1437 sets, daily range): BP systolic 105–124; BP diastolic 63–90; PULSE 83–112; TEMP 98.3–99.5; O2SAT 72–100
[2019-01-09 05:38] LABS: HEMOGLOBIN 10.6 g/dl (12.5-16.0); MEAN CELL VOLUME 83 fl (80.0-100.0); MEAN CORPUSCULAR HEMOGLOBIN 28 pg (27.0-31.0); MEAN CORPUSCULAR HGB CONC 34 g/dl (33.0-37.0); MEAN PLATELET VOLUME 11.8 fl (7.4-10.4); PLATELET COUNT 210 K/mm3 (130-400); RED BLOOD COUNT 3.73 M/mm3 (4.10-5.30); REDCELL DISTRIBUTION WIDTH-CV 13.9 % (11.5-14.5)
[2019-01-09 05:45] LABS: ARTERIAL BLD GAS O2 SATURATION 97.7 % (92-100); ARTERIAL BLD GAS TCO2 CT 24.8; ARTERIAL BLOOD GAS BASE EXCESS 1.9 (-2-2); ARTERIAL BLOOD GAS HCO3 23.9 meq/L (22-26); ARTERIAL BLOOD GAS PO2 121.8 mmHg (80-100); ARTERIAL BLOOD GAS pH 7.53 (7.35-7.45)
[2019-01-09 05:56] LABS: CALCIUM 8.5 mg/dL (8.4-10.2); CREATININE, serum 0.55 mg/dL (0.52-1.25); MAGNESIUM 2.1 mg/dL (1.6-2.3); PHOSPHOROUS 3.5 mg/dL (2.5-4.5)
[2019-01-09 05:57] LABS: HEMATOCRIT 30.9 % (37.0-47.0)
[2019-01-09 05:58] LABS: POTASSIUM 2.9 mmol/L (3.4-5.0)
--- NOTE | 2019-01-09 06:00 | NUR ---
Repositioning and jude-care performed. Patient occasionally observed moving extremities and lifting up head. No concerns at this time.
[2019-01-09 06:13] LABS: BAND 6 % (0-10); LYMPHOCYTE 13 % (20.0-51.0); NEUTROPHILS 77 % (42.0-75.2); PLATELET ESTIMATE NORMAL (NORMAL)
--- NOTE | 2019-01-09 06:43 | NUR ---
PT NOT INTUBATED FOR MORE THAN 24 HOURS THEREFORE NO CPAP TRIAL OR SMART CARE INITIATED. PT DOING FINE ON CURRENT VENT SETTINGS. NO DISTRESS NOTED AT THIS TIME WILL CONTINUE TO MONITOR.
--- NOTE | 2019-01-09 07:15 | NUR ---
Received bedside report from JENNIFER Worthy. Patient seemed to be aggitated. Medications and ventilator settings varified. Will continue to monitor patient.
--- NOTE | 2019-01-09 08:00 | NUR ---
Patient is able to follow simple commands at times. Other times the patient is not responding to commands. Patient did squeeze my fingers with her left hand. Absent squeeze in the right hand. Dr. Marks visited the patient and talked with the father regarding plan of care and possible transfer. Dr. Marks said he needed to collaberate with Dr. Duran and Dr. Holland on what would be best for the patient. Will continue to monitor patient.
--- NOTE | 2019-01-09 08:01 | NUR ---
PT'S SETTINGS DECREASED PER DR. ALEMAN AT BEDSIDE AT THIS TIME.
--- NOTE | 2019-01-09 14:09 | NUR ---
DR. RAMOS CALLED REGARDING PERSISTENT LIQUID STOOLS. ORDER RECEIVED TO INSERT AND MAINTAIN RECTAL TUBE.
--- NOTE | 2019-01-09 14:31 | NUR ---
RECTAL TUBE PLACED AT THIS TIME. 35 CC WATER PLACED IN THE BALLOON. STOOL IS SEEN IN THE TUBE. BAG HUNG ON END OF BED WITH NO KINKS IN THE LINE. WILL CONTINUE TO MONITOR.
[2019-01-09 15:09] LABS: ARTERIAL BLD GAS O2 SATURATION 97.8 % (92-100); ARTERIAL BLOOD GAS BASE EXCESS 0.6 (-2-2); ARTERIAL BLOOD GAS HCO3 23.1 meq/L (22-26); ARTERIAL BLOOD GAS PCO2 30.1 mmHg (35-45)
[2019-01-09 15:10] LABS: ARTERIAL BLOOD GAS PO2 124.8 mmHg (80-100)
--- NOTE | 2019-01-09 17:00 | NUR ---
PAtient to restless to try sedation vacation.
--- NOTE | 2019-01-09 19:15 | NUR ---
Gave report to JENNIFER Booker. Patient wast resting in bed.
--- NOTE | 2019-01-09 20:05 | NUR ---
Patient assessment completed and charted. Patient appears to tolerate ventilator. RT Leon in room with patient completing oral care. Will continue to monitor and assess.
--- NOTE | 2019-01-09 20:28 | NUR ---
CHANGED VENT WATER AT 2024
[2019-01-10] VITALS (1357 sets, daily range): BP systolic 88–137; BP diastolic 48–97; PULSE 76–99; TEMP 97.7–98.9; O2SAT 78–100
--- NOTE | 2019-01-10 00:05 | NUR ---
Assessment completed and charted at this time, please see documentation for details. Patient tolerating ventilator well majority of time. No new issues to report.
[2019-01-10 05:18] LABS: ARTERIAL BLD GAS O2 SATURATION 97.3 % (92-100); ARTERIAL BLD GAS TCO2 CT 23.7; ARTERIAL BLOOD GAS BASE EXCESS -0.9 (-2-2); ARTERIAL BLOOD GAS HCO3 22.7 meq/L (22-26); ARTERIAL BLOOD GAS PO2 112.5 mmHg (80-100); ARTERIAL BLOOD GAS pH 7.44 (7.35-7.45)
--- NOTE | 2019-01-10 05:58 | NUR ---
PT CONTINUES TO BE IN SMART CARE. ARMINDA WELL, COUGHING QUITE A BIT BUT OTHERWISE ARMINDA BREATHING TRIAL WELL, NO DISTRESS NOTED AT THIS TIME. WILL CONTINUE TO MONITOR AND NOTIFY DAY SHIFT RT.
[2019-01-10 06:21] LABS: HEMOGLOBIN 10.8 g/dl (12.5-16.0); MEAN CELL VOLUME 85 fl (80.0-100.0); MEAN CORPUSCULAR HEMOGLOBIN 29 pg (27.0-31.0); MEAN CORPUSCULAR HGB CONC 34 g/dl (33.0-37.0); MEAN PLATELET VOLUME 11.6 fl (7.4-10.4); PLATELET COUNT 218 K/mm3 (130-400); RED BLOOD COUNT 3.77 M/mm3 (4.10-5.30)
[2019-01-10 06:24] LABS: HEMATOCRIT 32.1 % (37.0-47.0)
[2019-01-10 06:34] LABS: ALBUMIN 2.4 gm/dL (3.5-5.0); BILIRUBIN,TOTAL 0.2 mg/dL (0.0-1.0); CALCIUM 8.3 mg/dL (8.4-10.2); CREATININE, serum 0.53 mg/dL (0.52-1.25); POTASSIUM 3.4 mmol/L (3.4-5.0)
[2019-01-10 07:36] LABS: BAND 14 % (0-10); LYMPHOCYTE 12 % (20.0-51.0); NEUTROPHILS 70 % (42.0-75.2); PLATELET ESTIMATE NORMAL (NORMAL)
--- NOTE | 2019-01-10 11:41 | NUR ---
SW and SW student attended clinical rounding. Patient remains intubated today. No new discharge needs however social work will continue to follow.
--- NOTE | 2019-01-10 13:31 | NUR ---
Pt intubated , very agitated, f/c intermittently, points to next when asked about pain. Pt Smart care trail self terminated d/t extreme agitation. Sedation restarted on pt. Dr Marks pulled CVL back from 20mm to 15mm d/t time location in RA.
--- NOTE | 2019-01-10 14:46 | NUR ---
Dr Senior notified of Influenza results; pt positive for Flu A.
--- NOTE | 2019-01-10 17:07 | NUR ---
UO noted to be greenish, tea coloered, Dr. Senior, orders recieved
--- NOTE | 2019-01-10 17:42 | NUR ---
VENT CHECK NOT DONE. PT HAVING EEG DONE AT THIS TIME.
--- NOTE | 2019-01-10 18:41 | NUR ---
Pt waking up, BLOOD, starting to become agitated no changes mad to sedation and pain meds
--- NOTE | 2019-01-10 19:24 | NUR ---
Hand off given to JENNIFER Booker
--- NOTE | 2019-01-10 19:47 | NUR ---
Patient assessment completed and charted at this time, please see documentation for details. Patient tolerating ventilator well at this time. No new issues to report, will continue to monitor and assess.
[2019-01-10 23:19] LABS: MYCOPLASMA IGM ANTIBODIES 0.16 (0.00-0.90)
[2019-01-11] VITALS (1209 sets, daily range): BP systolic 79–128; BP diastolic 45–97; PULSE 75–119; TEMP 97.2–99; O2SAT 53–100
[2019-01-11 05:26] LABS: HEMOGLOBIN 10.9 g/dl (12.5-16.0); MEAN CELL VOLUME 86 fl (80.0-100.0); MEAN CORPUSCULAR HEMOGLOBIN 28 pg (27.0-31.0); MEAN CORPUSCULAR HGB CONC 33 g/dl (33.0-37.0); MEAN PLATELET VOLUME 11.1 fl (7.4-10.4); PLATELET COUNT 228 K/mm3 (130-400); RED BLOOD COUNT 3.84 M/mm3 (4.10-5.30); REDCELL DISTRIBUTION WIDTH-CV 14.4 % (11.5-14.5)
[2019-01-11 05:36] LABS: ARTERIAL BLD GAS O2 SATURATION 95.5 % (92-100); ARTERIAL BLD GAS TCO2 CT 28.6; ARTERIAL BLOOD GAS BASE EXCESS 3.9 (-2-2); ARTERIAL BLOOD GAS HCO3 27.5 meq/L (22-26); ARTERIAL BLOOD GAS PCO2 37.5 mmHg (35-45); ARTERIAL BLOOD GAS PO2 80.4 mmHg (80-100); ARTERIAL BLOOD GAS pH 7.48 (7.35-7.45)
[2019-01-11 05:38] LABS: ALBUMIN 2.7 gm/dL (3.5-5.0); BILIRUBIN,TOTAL 0.2 mg/dL (0.0-1.0); CALCIUM 8.4 mg/dL (8.4-10.2); CREATININE, serum 0.49 mg/dL (0.52-1.25); POTASSIUM 3.3 mmol/L (3.4-5.0); TOTAL PROTEIN 5.7 gm/dL (6.4-8.2)
[2019-01-11 06:34] LABS: BAND 10 % (0-10); EOSINOPHIL 1 % (0-4); LYMPHOCYTE 21 % (20.0-51.0); METAMYELOCYTE 3 % (0-0); NEUTROPHILS 60 % (42.0-75.2)
[2019-01-11 06:35] LABS: PLATELET ESTIMATE NORMAL (NORMAL)
--- NOTE | 2019-01-11 10:25 | NUR ---
Pt continues to be very restless and agitated, Remains on sedation and sedation increased for agitating. Fent remains on for pain. Pt bathed and bedchanged, oral care completed and pt turned. Family/friend at bedside. will continue to monitor and assess for agitation
--- NOTE | 2019-01-11 12:55 | NUR ---
DONNA contacted patients DPOA Ivette to discuss [facility] at drs request. She is open to exploring the option but would like to include patients father and other DPOA in the decision. DONNA informed her that Quinn would be here this afternoon and could meet with her if she is open to the idea. Ivette reports she can be there after work around one and will contact patients father to see if he can come or call in. DONNA faxed clinical information to Quinn who reports he will meet with them when she gets to the hospital. DONNA will follow up with family to discuss further discharge plan.
--- NOTE | 2019-01-11 15:39 | NUR ---
DONNA and SW student met with patients LISPatti Steele and her father with [facility] from [facility]. They are open to [facility] but would like to see how patient does tomorrow. SW will keep [facility] updated.
--- NOTE | 2019-01-11 19:14 | NUR ---
Shift report given to JENNIFER Booker
[2019-01-12] VITALS (740 sets, daily range): BP systolic 81–1128; BP diastolic 46–88; PULSE 75–121; TEMP 97.3–98.5; O2SAT 77–100
--- NOTE | 2019-01-12 05:00 | NUR ---
Sedation vacation not performed at this time. Patient restless, easily arroused, will continue to monitor.
[2019-01-12 05:17] LABS: ARTERIAL BLD GAS O2 SATURATION 95.9 % (92-100); ARTERIAL BLD GAS TCO2 CT 24.8; ARTERIAL BLOOD GAS BASE EXCESS 0.5 (-2-2); ARTERIAL BLOOD GAS HCO3 23.8 meq/L (22-26); ARTERIAL BLOOD GAS PCO2 33.8 mmHg (35-45); ARTERIAL BLOOD GAS PO2 87.9 mmHg (80-100); ARTERIAL BLOOD GAS pH 7.47 (7.35-7.45)
[2019-01-12 05:28] LABS: HEMOGLOBIN 10.6 g/dl (12.5-16.0); MEAN CELL VOLUME 87 fl (80.0-100.0); MEAN CORPUSCULAR HEMOGLOBIN 29 pg (27.0-31.0); MEAN CORPUSCULAR HGB CONC 33 g/dl (33.0-37.0); MEAN PLATELET VOLUME 10.5 fl (7.4-10.4); PLATELET COUNT 255 K/mm3 (130-400); RED BLOOD COUNT 3.71 M/mm3 (4.10-5.30); REDCELL DISTRIBUTION WIDTH-CV 14.4 % (11.5-14.5)
[2019-01-12 05:32] LABS: HEMATOCRIT 32.1 % (37.0-47.0)
[2019-01-12 05:39] LABS: ALBUMIN 2.6 gm/dL (3.5-5.0); BILIRUBIN,TOTAL 0.1 mg/dL (0.0-1.0); CALCIUM 8.5 mg/dL (8.4-10.2); CREATININE, serum 0.49 mg/dL (0.52-1.25); POTASSIUM 3.1 mmol/L (3.4-5.0); TOTAL PROTEIN 5.4 gm/dL (6.4-8.2)
--- NOTE | 2019-01-12 06:00 | NUR ---
Bedside report recieved from Jhony RODRIGUEZ. Medications verified. Repositioned
[2019-01-12 06:25] LABS: ANISOCYTOSIS 1+; HYPOCHROMIA 1+; LYMPHOCYTE 25 % (20.0-51.0); METAMYELOCYTE 6 % (0-0); NEUTROPHILS 64 % (42.0-75.2); PLATELET ESTIMATE NORMAL (NORMAL)
--- NOTE | 2019-01-12 07:45 | NUR ---
Sedation medication halved for attempt at [facility] Care weaning trial per Dr. Marks's order.
--- NOTE | 2019-01-12 07:51 | NUR ---
Orders from Dr. Marks to stop Versed completely at this time and take Fentanyl to 12.5mcg/hr. Friends at bedside aware of decreased sedation and attempting to wean.
--- NOTE | 2019-01-12 09:48 | NUR ---
PT WAS ABLE TO COMPLETE ABOUT 1HR OF SMARTCARE TODAY BEGAN AT 08:47 UNTIL NOW. PT DURING THIS TIME HAD INCREASING PEAK AIRWAY PRESSURES FREQUENTLY AND WAS VERY AGITATED. PT HAD 4 BM DURING THIS TIME AND REQUIRED CLEANING. WILL TRY AGAIN THIS AFTERNOON. PRESSURE SUPPORT WAS WEANED TO 8 FROM 12 WITHIN THE FIRST 20MIN, HOWEVER, AT THIS TIME HAD INCREASED TO 20.
--- NOTE | 2019-01-12 09:48 | NUR ---
Dr. Marks gives orders to restart sedation where is was prior to doing sedation vacation, Versed at 7 and Fentanyl at 100.
--- NOTE | 2019-01-12 14:30 | NUR ---
PT TAKEN OFF OF SMARTCARE AT THIS TIME DUE TO APNEA VENTILATION.
--- NOTE | 2019-01-12 17:00 | NUR ---
No sedation vacation at this time due to multiple titrations of sedation medicaiton to get patient comfortable/relaxed.
--- NOTE | 2019-01-12 19:49 | NUR ---
Report given to Heidy RODRIGUEZ
--- NOTE | 2019-01-12 20:30 | NUR ---
PT RESTLESS. DURING ASSESSMENT THE PT'S RIGHT EYELID DID NOT OPEN FULLY COMPARED TO LEFT EYELID. PUPILS UNEQUAL IN SIZE. PT NOT FOLLOWING ALL COMMANDS. PT WILL OPEN EYES AND LOOK AT YOU DIRECTLY WHEN ASKED. WHEN ASKING TO SQUEEZE HANDS THERE IS A NEAR 10 SECOND DELAY WHEN ASKING TO SQUEEZE HANDS, BUT WILL PULL ARMS UP TOWARDS HER FACE SIMULTANEOUSLY. PT DOES NOT FOLLOW COMMANDS WHEN ASKED TO LIFT/PUSH AGAINST MY HANDS. PT WITNESSED SHAKING HEAD SIDE TO SIDE AND UP AND DOWN UNPROVOKED. WHEN ASKING PT TO STOPS SHE COMPLIES. WHEN ASKING PT TO FLEX OR EXTEND FEET SHE DOES NOT FOLLOW COMMANDS, BUT STARTS SHAKING HEAD SIDE TO SIDE; AGAIN, SHE STOPS WHEN ASKED TO STOP. PT DID HAVE A MEDIUM SIZED LOOSE BM. PT PROVIDED FULL BATH AND LINENS CHANGED. BARRIER CREAM APPLIED TO RECTUM AND GROIN. PT DOES HAVE A RED RASH TO LOW BACK, BUTTOCKS, GROIN, UPPER/INNER THIGH; PT IS POSITIVE FOR HSV2.
--- NOTE | 2019-01-12 20:52 | NUR ---
WHEN DOING FIRST VENT CHECK OF SHIFT UNABLE TO ATTAIN PLATEAU PRESSURE TRIED 3 TIMES WITH NO MEASUREMENT. THEREFORE STATIC COMPLIANC WAS UNABLE TO BE DONE WELL. PT IS FINE NO DISTRESS NOTED
[2019-01-13] VITALS (1424 sets, daily range): BP systolic 77–145; BP diastolic 40–978; PULSE 78–132; TEMP 97.5–99; O2SAT 69–100
--- NOTE | 2019-01-13 | NUR ---
PT HAD LARGE LOOSE BM. PT RUBBING HAND IN STOOL. PT CLEANED UP. LINENS UNDERNEATH REPLACED. GOWN REPLACED. SP02 PROBE REPLACED. RESTRAINT REPLACED.
--- NOTE | 2019-01-13 04:00 | NUR ---
0300: PT INCREASED RESTLESSNESS. ATTEMPTING TO PUT LEGS OVER BED RAILS AND PULLING ON RESTRAINTS. SEDATION INCREASED. PT REPOSITIONED. ~0345: PT CONTINUES TO BE RESTLESS. PRN ATIVAN ADMINISTERED. PT REPOSITIONED. 0400: PT CONTINUES TO BE RESTLESS. SEDATION INCREASED. PT REPOSITIONED. 0430: PT ATTEMPTING TO BRING LEGS OVER BED RAILS. PT REPOSITIONED 0500: PT CONTINUES TO BE RESTLESS, BUT NOT TO THE EXTENT PREVIOUSLY
--- NOTE | 2019-01-13 05:00 | NUR ---
0500: SEDATION VACATION POSTPONED DUE TO PT RESTLESS/AGITATED AND AWAITING RESULTS FROM AM ABG. 0620: SEDATION DECREASED TO 5MG/HR TO TEST PT FOR SMART CARE.
[2019-01-13 05:36] LABS: HEMOGLOBIN 10.5 g/dl (12.5-16.0); MEAN CELL VOLUME 86 fl (80.0-100.0); MEAN CORPUSCULAR HEMOGLOBIN 29 pg (27.0-31.0); MEAN CORPUSCULAR HGB CONC 34 g/dl (33.0-37.0); MEAN PLATELET VOLUME 9.9 fl (7.4-10.4); PLATELET COUNT 300 K/mm3 (130-400); RED BLOOD COUNT 3.66 M/mm3 (4.10-5.30); REDCELL DISTRIBUTION WIDTH-CV 14.2 % (11.5-14.5)
[2019-01-13 05:41] LABS: HEMATOCRIT 31.3 % (37.0-47.0)
[2019-01-13 05:49] LABS: ALBUMIN 2.7 gm/dL (3.5-5.0); BILIRUBIN,TOTAL 0.1 mg/dL (0.0-1.0); CALCIUM 8.3 mg/dL (8.4-10.2); CREATININE, serum 0.39 mg/dL (0.52-1.25); TOTAL PROTEIN 5.5 gm/dL (6.4-8.2)
[2019-01-13 05:50] LABS: POTASSIUM 2.9 mmol/L (3.4-5.0)
[2019-01-13 05:53] LABS: ARTERIAL BLD GAS O2 SATURATION 96.8 % (92-100); ARTERIAL BLD GAS TCO2 CT 33.8; ARTERIAL BLOOD GAS BASE EXCESS 9.2 (-2-2); ARTERIAL BLOOD GAS HCO3 32.6 meq/L (22-26); ARTERIAL BLOOD GAS PCO2 39.4 mmHg (35-45); ARTERIAL BLOOD GAS PO2 99.4 mmHg (80-100); ARTERIAL BLOOD GAS pH 7.54 (7.35-7.45)
--- NOTE | 2019-01-13 07:12 | NUR ---
Bedside report recieved from JENNIFER [facility].
--- NOTE | 2019-01-13 07:46 | NUR ---
PT WAS PLACED ON SMARTCARE TRIAL AT THIS TIME. TRIED THREE ATTEMPTS. PT CONTINUES TO HAVE APNEA BREATHING. PT IS ABLE TO OPEN EYES AND RESPONDS WELL. HOWEVER SHE IS FALLING ASLEEP AT THIS TIME. ASSIST CONTROL BEGAN.
--- NOTE | 2019-01-13 07:50 | NUR ---
Smart care aborted, patient placed back on CMV, FIO2 30%, TV 400, BR 15, Peep 5.
--- NOTE | 2019-01-13 08:30 | NUR ---
Assessment complete, patient resting on ventilator. Family at bedside. Patient restless and repositioned multiple times.
--- NOTE | 2019-01-13 09:00 | NUR ---
Dr. Reardon called to have me advance OG tube, OG was advanced to 70cm, verified by epigastric auscultation.
[2019-01-13 09:16] LABS: BAND 1 % (0-10); LYMPHOCYTE 27 % (20.0-51.0); NEUTROPHILS 69 % (42.0-75.2); OVALOCYTES 1+; PLATELET ESTIMATE INCREASED (NORMAL)
--- NOTE | 2019-01-13 19:07 | NUR ---
Bedside report given to JENNIFER [facility]. All lines and gtts verified. Family at bedside.
--- NOTE | 2019-01-13 20:00 | NUR ---
PT RESTLESS AT SHIFT CHANGE. PRECEDEX INITIATED. FENTYNL AND VERSED GTTS INFUSING. PTS FATHER AT BEDSIDE ATTEMPTING TO RELAX PT TO LAY BACK. PT SITTING UP IN BED TRYING TO PUSH HERSELF DOWN AND ATTEMPTING TO GRAB AT ET & OG TUBES. PT REPOSITIONED AND RESTRAINTS ADJUSTED. PT FOLLOWING COMMANDS TO SQUEEZE HANDS, BUT NOT TO PUSH UP/DOWN WITH HANDS OR TO MOVE FEET/LEGS ON COMMAND. PT FLEXING AT KNEES AND HIPS. PT'S BILAT FEET HAVE THE APPEARANCE OF BEGINNING OF DROP FOOT. PT SHAKING HEAD SIDE TO SIDE AND UP AND DOWN, BUT WHEN ASKED TO STOP PT COMPLIES.
[2019-01-14] VITALS (1243 sets, daily range): BP systolic 77–121; BP diastolic 38–76; PULSE 60–102; TEMP 97.6–99.7; O2SAT 39–100
--- NOTE | 2019-01-14 | NUR ---
BEGINNING OF SHIFT 01/13 PT RESTLESS. 01/13: @ 1900 PRECEDEX INITIATED TO 0.2 MCG/KG/HR 3.4 ML/HR - VSS PT TACHYCARDIC @ 1920 PRECEDEX INREASED TO 0.3 - VSS PT TACHYCARDIC @ ~1940 EICU CONSULTED REGARDING PT GETTING AGITATED. 100 MCG FENTYNL ORDERED. PT REMAINED AGITATED. VSS PT TACHYCARDIC @ 1999 VERSED INCREASED TO 4 MG/HR 4 ML/HR - VSS PT TACHYCARDIC @ 2029 PRECEDEX INCREASED PER TO 1.4 - VSS PT TACHYCARDIC @ 2099 VERSED INCREASED TO 5 - VSS PT TACHYCARDIC @ 2199 VERSED INCREASED TO 6 - VSS PT TACHYCARDIC @ 2229 PROPOFOL INITIATED PER EICU AT 30 MCG/KG/MIN 11.5ML/HR. VSS BP 127/83 HR 109 @ 2245 VERSED DECREASED TO 4 PER EICU - VSS PT TACHYCARDIC AND AROUSABLE PT IS AT EASE AND NO LONGER AGITATED AND RESTLESS @ 2300 VERSED DECREASED TO 3 PER EICU - VSS BP 96/55 HR 84 @ 2315 VERSED DECREASED TO 2 PER EICU & PRECEDEX DECREASED TO 0.7 PER EICU - BP 86/45 HR 78 01/14: @ 0000 - BP 79/39 HR 73 EICU AWARE OF HYPOTENSION. MANAGEMENT OF BP CONSISITING OF MED TITRATION. @ 0015 PROPOFOL DECREASED TO 20 PER EICU - BP 79/38 HR 72 @ 0045 PROPOFOL DECREASED TO 10 PER EICU - BP 82/41 HR 75 PT REMAINS AROUSABLE
--- NOTE | 2019-01-14 04:00 | NUR ---
PT FOLLOWING VERBAL COMMANDS: SQUEEZING HANDS, LIFTING UP AND PUSHING AGAINST MY HANDS WITH BILAT HANDS AND FEET. PT ROTATING BILAT ANKLES. PT NODDING YES AND NO WITH PURPOSE. SEDATION TITRATION NOT DECREASED DUE TO PTS ALERTNESS.
[2019-01-14 04:46] LABS: MEAN CELL VOLUME 89 fl (80.0-100.0); MEAN CORPUSCULAR HGB CONC 32 g/dl (33.0-37.0); MEAN PLATELET VOLUME 10.2 fl (7.4-10.4); PLATELET COUNT 282 K/mm3 (130-400); RED BLOOD COUNT 3.14 M/mm3 (4.10-5.30); REDCELL DISTRIBUTION WIDTH-CV 14.5 % (11.5-14.5)
[2019-01-14 04:50] LABS: HEMATOCRIT 27.9 % (37.0-47.0); MEAN CORPUSCULAR HEMOGLOBIN 29 pg (27.0-31.0)
[2019-01-14 05:00] LABS: ALANINE AMINOTRANSFERASE 52 U/L (9-52); ALBUMIN 2.4 gm/dL (3.5-5.0); ALKALINE PHOSPHATASE 39 U/L (50-136); ANION GAP 2 mmol/L (7-16); AST,SGOT 31 U/L (15-37); BILIRUBIN,TOTAL < 0.1 mg/dL (0.0-1.0); BLOOD UREA NITROGEN 18 mg/dL (7-17); CARBON DIOXIDE 25 mmol/L (22-30); CHLORIDE 115 mmol/L (98-107); CREATININE, serum 0.42 mg/dL (0.52-1.25); GLUCOSE 121 mg/dL (74-106); LIPASE 211 U/L (23-300); MAGNESIUM 2.5 mg/dL (1.6-2.3); POTASSIUM 4.1 mmol/L (3.4-5.0); SODIUM 142 mmol/L (137-145); TRIGLYCERIDE 119 mg/dL
--- NOTE | 2019-01-14 05:00 | NUR ---
NO SEDATION VACATION DUE TO PT ALERT. FOLLOWING COMMANDS AND AROUSABLE.
[2019-01-14 05:22] LABS: TROPONIN-I 0.045 ng/mL (0.000-0.035)
[2019-01-14 06:03] LABS: ARTERIAL BLD GAS O2 SATURATION 97.5 % (92-100); ARTERIAL BLD GAS TCO2 CT 24.7; ARTERIAL BLOOD GAS BASE EXCESS 0.2 (-2-2); ARTERIAL BLOOD GAS HCO3 23.7 meq/L (22-26); ARTERIAL BLOOD GAS PCO2 33.8 mmHg (35-45); ARTERIAL BLOOD GAS pH 7.46 (7.35-7.45)
[2019-01-14 06:04] LABS: ARTERIAL BLOOD GAS PO2 121.4 mmHg (80-100)
[2019-01-14 06:28] LABS: EOSINOPHIL 1 % (0-4); LYMPHOCYTE 15 % (20.0-51.0); NEUTROPHILS 84 % (42.0-75.2); PLATELET ESTIMATE NORMAL (NORMAL); POLYCHROMASIA 1+
--- NOTE | 2019-01-14 07:05 | NUR ---
0705: VENT ALARMING. CHECKED PT AND ET TUBE DISPLACED/PARTIALLY PULLED OUT BY PT. PT RESTRAINTS IN PLACE. PT HAD PULLED HERSELF DOWN ENOUGH TO GRASP ET AND OG TUBES. RT CALLED, PT SP02 97%.THIS OCCURRED WHILE ON SMART CARE. PT HAD POOR TIDAL VOLUMUES. 0711: DR ALEMAN CONSULTED OVER PHONE AND INFORMED OF SITUATION. DUE TO LOW TIDAL VOLUMES ORDERED EXTUBATION. PT SEDATION D/C. 0714: PT EXTUBATED
--- NOTE | 2019-01-14 07:22 | NUR ---
PT EXTUBATED AT 0714. PT TOLERATING WELL. PLACED ON 2L OXYMASK. SPO2 100%.
--- NOTE | 2019-01-14 08:00 | NUR ---
PT HAD SELF EXTUBATED HERSELF THIS AM. PT AWAKE AND ALERT AND ORIENTED TO SELF. PT CONFUSED TO SITUATION AND LOCATION. PT REPEATEDLY ASKING FOR HER DAD AND FRIENDS. PT FOLLOWS SOME COMMANDS BUT SPEAKS INAPPROPRIATELY MAJORITY OF TIME. PT ON 2L OM O2 SAT 90-100%. BEDCHANGE PERFORMED D/T LARGE LOOSE INCONTINENT STOOL.
--- NOTE | 2019-01-14 08:45 | NUR ---
FAMILY HAS ARRIVED AND IS AT BEDSIDE. PT AGITATED AND RESTLESS STATING SHE WANTS TO LEAVE.
--- NOTE | 2019-01-14 09:21 | NUR ---
DR ALEMAN PRESENT TO ASSESS PATIENT.
--- NOTE | 2019-01-14 14:42 | NUR ---
PT RETURNED TO BED.
--- NOTE | 2019-01-14 17:12 | NUR ---
PT STATES SHE WOULD LIKE TO GET A SHOWER. I TOLD PATIENT WE DO NOT HAVE SHOWERS IN THE ICU BUT I COULD GET A BASIN AND WASH CLOTHES AND SHAMPOO HER HAIR WITH A SHAMPOO CAP. PT REFUSES AND STATES SHE WOULD LIKE TO WAIT UNTIL SHE COULD GET A SHOWER ON THE MEDICAL FLOOR.
--- NOTE | 2019-01-14 19:33 | NUR ---
Report received from JENNIFER Browning. Resting in bed with visitors at bedside.
--- NOTE | 2019-01-14 20:02 | NUR ---
Sitting at bedside with friends. Friends assisted with bedbath. Linens changed. Assessment complete. Left lower lobe crackles, otherwise kaur are clear. Bowels active x4. Pulses strong throughout. Wong drainage well with clear yellow urine. Emptied 700ml from bag. Left facial cheek area erythema present from ET tube securement device. Gait steady with transferring to chair and back to bed. Vault Clerk equal. Denies any pain. No edema noted. VS stable. Denies needs at this time. Call light in reach.
--- NOTE | 2019-01-14 20:42 | NUR ---
Reports 05/30 headache. Provided PRN tylenol as ordered. Patient states tylenol has not resolved headache throughout day and would like something else. Patient triple lumen flushed x3. White port, no blood return. Attemped to have patient cough and reposition, unsuccessful. Other ports flush well with blood return. Notified SABRINA Plunkett. Okay to not use white port. Will add order for imitrex.
--- NOTE | 2019-01-14 23:00 | NUR ---
Recent troponin 0.053 up from 0.050. Kiarra notifed. No new orders.
[2019-01-15] VITALS (697 sets, daily range): BP systolic 104–114; BP diastolic 55–81; PULSE 77–98; TEMP 98.8–99.3; O2SAT 60–100
--- NOTE | 2019-01-15 00:26 | NUR ---
Resting in bed, requesting jello. Will provide. Assessment complete. No change from previous assessment. Report imitrex improved headache pain. Denies other needs at this time. Call light in reach.
--- NOTE | 2019-01-15 03:26 | NUR ---
Up to recliner with chair alarm in place. Denies other needs. Call light in reach.
--- NOTE | 2019-01-15 05:04 | NUR ---
Resting in recliner. Assessment completed. No changes from previous assessment. Denies needs at this time. Call light in reach.
[2019-01-15 05:57] LABS: MEAN CELL VOLUME 86 fl (80.0-100.0); MEAN CORPUSCULAR HEMOGLOBIN 29 pg (27.0-31.0); MEAN CORPUSCULAR HGB CONC 33 g/dl (33.0-37.0); MEAN PLATELET VOLUME 9.8 fl (7.4-10.4); RED BLOOD COUNT 3.46 M/mm3 (4.10-5.30); REDCELL DISTRIBUTION WIDTH-CV 14.6 % (11.5-14.5)
[2019-01-15 05:59] LABS: HEMATOCRIT 29.9 % (37.0-47.0); PLATELET COUNT 416 K/mm3 (130-400)
[2019-01-15 06:13] LABS: ALBUMIN 2.7 gm/dL (3.5-5.0); BILIRUBIN,TOTAL 0.3 mg/dL (0.0-1.0); CALCIUM 8.6 mg/dL (8.4-10.2); CREATININE, serum 0.36 mg/dL (0.52-1.25); MAGNESIUM 2.1 mg/dL (1.6-2.3); PHOSPHOROUS 2.8 mg/dL (2.5-4.5); TOTAL PROTEIN 5.6 gm/dL (6.4-8.2)
[2019-01-15 06:20] LABS: PRE ALBUMIN 21.5 mg/dL (17.6-36.0)
--- NOTE | 2019-01-15 06:21 | NUR ---
Returned to bed at this time. Uneventful night. Alert and orientated x3, patient unsure of month and day this morning. Oxygen saturations above 98% throughout shift on room air. Denies any other needs at this time. Call light in reach.
[2019-01-15 06:25] LABS: BAND 1 % (0-10); LYMPHOCYTE 23 % (20.0-51.0); NEUTROPHILS 74 % (42.0-75.2); PLATELET ESTIMATE INCREASED (NORMAL); POLYCHROMASIA 1+
[2019-01-15 06:26] LABS: SCHISTOCYTES 1+
[2019-01-15 06:27] LABS: POTASSIUM 2.6 mmol/L (3.4-5.0)
--- NOTE | 2019-01-15 07:20 | NUR ---
BEDSIDE REPORT RECEIVED FROM JENNIFER DA SILVA. PATIENT CURRENTLY SLEEPING. VS WNL ON MONITOR. POTASSIUM REPLACEMENT PROTOCOL IMPLEMENTED FOR K+ 2.6. KCL INFUSING AT PRESCRIBED RATE. WILL CONTINUE TO MONITOR.
[2019-01-15 09:07] LABS: PARTIAL THROMBOPLASTIN TIME 34.4 SECONDS (26.0-37.0)
--- NOTE | 2019-01-15 09:14 | NUR ---
PT BACK FROM MRI. ASKED PT IF SHE WANTED PRN DUONEB TX AT THIS TIME. PT REFUSES. PLACED PT ON LOWEST SETTING OF COOL AEROSOL VIA TRACH COLLAR AT THIS TIME. PT TOLERATING WELL. FIO2 33% 8LPM.
--- NOTE | 2019-01-15 09:45 | NUR ---
DR. COOL HERE TO SEE PATIENT
--- NOTE | 2019-01-15 10:00 | NUR ---
DR. ALEMAN HERE TO SEE PATIENT
--- NOTE | 2019-01-15 10:52 | NUR ---
DR. DIANA HERE TO SEE PATIENT
--- NOTE | 2019-01-15 11:59 | NUR ---
DONNA attended clinical rounds. The patient has been extubated and is to transfer up to the medical floor today, 01/15. DONNA collaborated with the hospitalist and the hospitalist informed DONNA that the patient is not in need of LTAC now. DONNA then contacted and updated Quinn at [facility]. DONNA to continue to follow.
--- NOTE | 2019-01-15 12:30 | NUR ---
PATIENT UP TO CHAIR FOR LUNCH. CHAIR ALARM IN PLACE.
--- NOTE | 2019-01-15 13:50 | NUR ---
PATIENT BACK TO BED AT THIS TIME. SHE HAS NO C/O. PLAN ON DOING ECHO SOON. OPERATIONS AND MAINTENANCE SUPERVISOR CONTACTED AT THIS TIME.
--- NOTE | 2019-01-15 18:05 | NUR ---
Pt arrived to floor via w/c with ICU staff. Oriented to room. Rested in chair at side of bed for a while and now back in bed. meidcatons running into brown and blue port of RSC triple lumen. Face skin breakdown from where ventilator/OG tubing attached to face, pt putting ointment on herself. Will cotninue to monitor and give bedside shift report to nightshift nurse who will resume care.
[2019-01-15 18:27] LABS: COLLECTION METHOD CATHETER
[2019-01-15 18:34] LABS: MUCOUS Present /lpf; PH 6 (5-8); SQUAMOUS EPITHELIAL 0-2 /hpf; URINE APPEARANCE Clear; URINE BACTERIA None Seen /hpf; URINE BILIRUBIN Negative (NEGATIVE); URINE BLOOD Negative (NEGATIVE); URINE COLOR Yellow; URINE GLUCOSE Negative (NEGATIVE); URINE KETONE 1+ (NEGATIVE); URINE LEUKOCYTE ESTERASE Negative (NEGATIVE); URINE NITRATE Negative (NEGATIVE); URINE PROTEIN(semi-quant) Negative (NEGATIVE); URINE UROBILINOGEN Negative (NEGATIVE)
[2019-01-15 19:08] LABS: URINE PROTEIN:CREAT RATIO 0.14 (0.00-0.14)
[2019-01-16] VITALS (7 sets, daily range): BP systolic 92–108; BP diastolic 49–65; PULSE 70–88; TEMP 98.2–99.1
--- NOTE | 2019-01-16 00:26 | NUR ---
Completed assessment and medication administration; PT tolerated cares and medications well; PT able to communicate basic answer and concerns; PT denies pain or discomfort at time of assessment; Assisted to a comfortable position in bed with call light within reach; Friend in room with PT; No further verbalized concerns at this time; Will continue to monitor. CDA
--- NOTE | 2019-01-16 02:55 | NUR ---
PT resting well in supine position in bed; No visual concerns. Call light within reach; Will continue to monitor. CDA
--- NOTE | 2019-01-16 06:41 | NUR ---
Gave report to JENNIFER Garcia. CDA
--- NOTE | 2019-01-16 07:00 | NUR ---
Report on to JENNIFER Garcia
--- NOTE | 2019-01-16 07:20 | NUR ---
Assessment completed, VSS, Pt. reports SOB, fine crackels heard in all kaur, breathing is shallow and unlabored. Non-productive cough with movement and deep breathing. Superficial abraision to L cheek and L upper lip r/t recent intubation. R subclavian central line; no redness, warmth, tenderness. Telemetry on. reports lumbar pain of 7/10. Primary nurse notified of pain. Osorio to DD, urine yellow w/ white sediment. superficial abrasions to inner thigh and labia r/t osorio. Pt. resting with bed locked in lowest posintion, padded bed rails up.
--- NOTE | 2019-01-16 08:50 | NUR ---
PRN tylenol 650mg given for lumbar pain.
--- NOTE | 2019-01-16 09:30 | NUR ---
Pt. resting comfortably.
--- NOTE | 2019-01-16 09:33 | NUR ---
Patient resting in bed this time. Awakens easily. Patient is alert and oriented x 3. No confusion at this time and follows all commands. Triple lumen flushed with 5 cc of NS. Only able to get blood return from blue port. MD made aware; lines flush without difficulty. Noted fine crackles LLL. Otherwise lungs CTA with resp even and unlabored. HR strong regular. Abd flat soft with bowel sounds x 4 quads. PPP. No edema noted. Patents upper lip reddened from vent taping. Patient taking oral food/fluids without difficulty. Questioned MD if osorio should be removed today. Will address on MD rounds
--- NOTE | 2019-01-16 12:30 | NUR ---
Patient up to shower with student nurse. She tolerted this well. Tired after shower. Back to bed for rest. No other needs at this time
--- NOTE | 2019-01-16 18:05 | NUR ---
Family in to visit with patient. She denies any c/o pain/discomfort. New orders recieved from .
--- NOTE | 2019-01-16 22:11 | NUR ---
Pt resting in bed napping, no C/O pain at this time, shift assessments complete, left Pt call light in reach, bed in lowest position.
[2019-01-17 04:39] VITALS: BP 112/64; PULSE 93; TEMP 98.5
--- NOTE | 2019-01-17 05:06 | NUR ---
PT HAD UNEVENTFUL NOC. NO ISSUES OR CONSERNS VOICED. AMBULATING WELL TO AND FROM BATHROOM. NO C/O PAIN.
--- NOTE | 2019-01-17 07:00 | NUR ---
Report on to JENNIFER Miguel
--- NOTE | 2019-01-17 07:30 | NUR ---
Assessment completed, VSS, periorbital abrasion r/t intubation, central line in R subclavian; no swelling, redness, tenderness. telemetry on. Lungs CTA, non-productive cough noted. Irritation to inner thighs r/t osorio. seizure precations in place. Pt. verbalizes readiness for discharge, Pt. is resting comfortably with breakfast, no further needs at this time.
[2019-01-17 08:00] VITALS: BP 106/71; PULSE 74; TEMP 99
[2019-01-17 08:41] LABS: BASO % 0.3 % (0.0-2.0); EOS # 0.1 (0.0-0.7); EOS % 0.7 % (0-4.0); GRAN # 5.7 (1.4-6.5); GRAN % 64.4 % (42.2-75.2); LYMPH % 22.3 % (20.0-51.0); MEAN CELL VOLUME 89 fl (80.0-100.0); MEAN CORPUSCULAR HGB CONC 33 g/dl (33.0-37.0); MEAN PLATELET VOLUME 10.1 fl (7.4-10.4); MONO % 10.9 % (1.7-9.3); RED BLOOD COUNT 3.19 M/mm3 (4.10-5.30); REDCELL DISTRIBUTION WIDTH-CV 15.9 % (11.5-14.5)
[2019-01-17 08:48] LABS: HEMATOCRIT 28.5 % (37.0-47.0); HEMOGLOBIN 9.3 g/dl (12.5-16.0); MEAN CORPUSCULAR HEMOGLOBIN 29 pg (27.0-31.0); PLATELET COUNT 535 K/mm3 (130-400)
[2019-01-17 08:52] LABS: ALBUMIN 2.7 gm/dL (3.5-5.0); BILIRUBIN,TOTAL 0.2 mg/dL (0.0-1.0); CALCIUM 8.8 mg/dL (8.4-10.2); CREATININE, serum 0.35 mg/dL (0.52-1.25); POTASSIUM 3.4 mmol/L (3.4-5.0); TOTAL PROTEIN 5.3 gm/dL (6.4-8.2)
--- NOTE | 2019-01-17 09:00 | NUR ---
Pt. ambulated to toilet with SBA, steady gait, voided without difficulty.
[2019-01-17 09:11] LABS: PHOSPHOROUS 3.9 mg/dL (2.5-4.5)
[2019-01-17 11:00] VITALS: BP 109/66; PULSE 70; TEMP 99.1
--- NOTE | 2019-01-17 11:30 | NUR ---
Pt. up walking with therapy.
[2019-01-17] MEDS ORDERED: DEPAKOTE500 MG PO (15:26)
[2019-01-17] MEDS ORDERED: LIPITOR 40MG TA40 MG PO (15:26)
[2019-01-17] MEDS ORDERED: PROAIR HFA0.09 MG/AC IH (15:26)
[2019-01-17] MEDS ORDERED: KEPPRA1000 MG PO (15:26)
[2019-01-17] MEDS ORDERED: ZOVIRAX400 MG PO (15:26)
[2019-01-17] MEDS ORDERED: ASPIRIN E.C. 8181 MG PO (15:26)
[2019-01-17] MEDS ORDERED: PREDNISONE10 MG PO (15:26)
[2019-01-17] MEDS ORDERED: K-DUR20 MEQ PO (15:29)
--- NOTE | 2019-01-17 15:52 | NUR ---
Patient is dc home today with outpatient PT through the [facility] child clinic. SW checked with pt who reports this is what they recommend. Patient is too functional for IPR and will not need IV antibiotics. SW presented IM and verbally discussed the contents. Patient was agreeable and signed the form. Copy denied and original on the chart. No other discharge needs identified.
--- NOTE | 2019-01-17 17:41 | NUR ---
Right Subclavian central Line Catheter removed according to policy. Catheter removed without difficutly, entire catheter remained intact with no resistance. All questions answered after educational material covered. Prescriptions handed over to pt. DANITZA Loyaorted pt to private vehicle driven by friend of pt. Central line dressing educational information provided: keep clean and dry for 3 days, call physician if site becomes red, tender, has drainage or for a fever > 100.4
== END 2019-01-17 17:46 | disposition home or self-care (01) | DRG 870 ==
LOC: COL.ER 17:17 → ICU 20:14 → MEDICAL 01-15 17:19
PROVIDERS: Anesthesiology Critical Care Medicine; Emergency Medicine; Internal Medicine; Internal Medicine Nephrology; Internal Medicine Pulmonary Disease; Nurse Practitioner; Physician Assistant; ADMIT Hospitalist
PROC: 5A1955Z Respiratory Ventilation, Greater than 96 Consecutive Hours (ICD-10-PCS; principal; 2019-01-05)
PROC: 009U3ZX Drainage of Spinal Canal, Percutaneous Approach, Diagnostic (ICD-10-PCS; 2019-01-08)
DX: A41.89 Other specified sepsis (principal); J09.X1 Influenza due to identified novel influenza A virus with pneumonia; J15.4 Pneumonia due to other streptococci; R65.21 Severe sepsis with septic shock; I21.A1 Myocardial infarction type 2; G93.41 Metabolic encephalopathy; K72.00 Acute and subacute hepatic failure without coma; R09.2 Respiratory arrest; E87.2 Acidosis; E87.4 Mixed disorder of acid-base balance; E87.3 Alkalosis; E44.0 Moderate protein-calorie malnutrition; E87.6 Hypokalemia; G40.909 Epilepsy, unspecified, not intractable, without status epilepticus; E03.9 Hypothyroidism, unspecified; F43.10 Post-traumatic stress disorder, unspecified; Z98.84 Bariatric surgery status; B00.9 Herpesviral infection, unspecified; I10 Essential (primary) hypertension; E83.39 Other disorders of phosphorus metabolism; Z68.25 Body mass index [BMI] 25.0-25.9, adult; Z88.0 Allergy status to penicillin
CPT/HCPCS: 99223-AI; 99232-AI; 99233-AI; 99239; A4216; A4314; J0133; J0330; J0456; J0692; J0696; J1120; J1644; J1650; J1720; J1953; J2060; J2250; J2704; J2765; J3010; J3030; J3370; J3411; J3480; J7030; J7050; J7060; J7120; J7512; Q9967

== ENCOUNTER → 2019-01-29 | Outpatient (CLI) | payer MEDICARE ==
[~2019-01-29] MED LIST changes: +ASPIRIN E.C. 8181 MG PO; +DEPAKOTE500 MG PO; +K-DUR20 MEQ PO; +LIPITOR 40MG TA40 MG PO; +PREDNISONE10 MG PO; +PROAIR HFA0.09 MG/AC IH; +ZOVIRAX400 MG PO
== END ==
LOC: MHCPAIN 08:05
DX: G89.29 Other chronic pain (principal); M47.817 Spondylosis without myelopathy or radiculopathy, lumbosacral region; M53.3 Sacrococcygeal disorders, not elsewhere classified; M47.814 Spondylosis without myelopathy or radiculopathy, thoracic region
CPT/HCPCS: G0463

== ENCOUNTER → 2019-02-23 | Outpatient (CLI) | payer MEDICARE ==
[2019-02-23 10:55] LABS: ALBUMIN 4.5 gm/dL (3.5-5.0); CALCIUM 9.7 mg/dL (8.4-10.2); CREATININE, serum 0.75 (0.52-1.25); MAGNESIUM 2.3 mg/dL (1.6-2.3); PHOSPHOROUS 4.4 mg/dL (2.5-4.5)
== END ==
LOC: COL.LAB 09:43
PROVIDERS: Internal Medicine Nephrology
DX: E87.6 Hypokalemia (principal)

== ENCOUNTER 2019-02-28 07:07 | Outpatient (CLI) | payer MEDICARE ==
[~2019-02-28] VITALS: Ht 152.4 cm; Wt 56.1 kg
[2019-02-28 09:00] VITALS: BP 128/62; PULSE 62; TEMP 98.3
== END 2019-02-28 09:45 | disposition home or self-care (01) ==
LOC: EUO 07:07
DX: I95.9 Hypotension, unspecified (principal)
CPT/HCPCS: J0834

== ENCOUNTER 2019-03-05 09:00 | Outpatient (RCR) | payer MEDICARE | END 2019-03-07 14:22 | disposition home or self-care (01) | LOC: WSOT 09:00 | DX: R53.1 Weakness (principal) ==

== ENCOUNTER → 2019-04-18 | Outpatient (CLI) | payer MEDICARE | LOC: MHCPAIN | DX: G89.29 Other chronic pain (principal); M47.817 Spondylosis without myelopathy or radiculopathy, lumbosacral region; M53.3 Sacrococcygeal disorders, not elsewhere classified; M47.814 Spondylosis without myelopathy or radiculopathy, thoracic region | CPT/HCPCS: G0463 ==

== ENCOUNTER → 2019-04-19 | Outpatient (CLI) | payer MEDICARE ==
[2019-04-19 11:43] LABS: CALCIUM 9.8 mg/dL (8.4-10.2); CREATININE, serum 0.64 (0.52-1.25); POTASSIUM 3.9 mmol/L (3.4-5.0)
[2019-04-21 15:03] LABS: URINE TOTAL VOLUME 1500 mL
[2019-04-21 15:05] LABS: CREATININE, serum 0.64 (0.52-1.25)
[2019-04-21 15:14] LABS: URINE CREATININE CLEARANCE 131.1 mL/min (88-128)
[2019-04-21 15:39] LABS: URINE 24 HOUR POTASSIUM 54.5 mmol/24h (25-125)
== END ==
LOC: COL.LAB 09:50
PROVIDERS: Family Medicine
DX: E87.6 Hypokalemia (principal); I95.89 Other hypotension

== ENCOUNTER → 2019-04-23 | Outpatient (CLI) | payer MEDICARE | LOC: MHCPAIN 10:49 | DX: M47.814 Spondylosis without myelopathy or radiculopathy, thoracic region (principal); M54.16 Radiculopathy, lumbar region ==

== ENCOUNTER → 2019-04-26 | Outpatient (CLI) | payer MEDICARE | LOC: MHCPAIN 09:19 | DX: M47.817 Spondylosis without myelopathy or radiculopathy, lumbosacral region (principal); M53.3 Sacrococcygeal disorders, not elsewhere classified; M47.814 Spondylosis without myelopathy or radiculopathy, thoracic region | CPT/HCPCS: G0463; J1100; J2250; J3010 ==

== ENCOUNTER → 2019-05-10 | Outpatient (CLI) | payer MEDICARE | LOC: MHCPAIN 05-07 08:19 | DX: M47.814 Spondylosis without myelopathy or radiculopathy, thoracic region (principal); M54.12 Radiculopathy, cervical region | CPT/HCPCS: J1100; J2250; J3010 ==

== ENCOUNTER 2019-06-18 08:41 | Day surgery (SDC) | payer MEDICARE ==
[2019-06-18] VITALS (9 sets, daily range): BP systolic 104–124; BP diastolic 63–82; PULSE 61–72; TEMP 96.9–98.1
[~2019-06-18] VITALS: Ht 157.6 cm; Wt 52.4 kg
[~2019-06-18 08:41] MED LIST changes: +AMBIEN 5MG TABLE5 MG PO; +CATAPRES 0.1MG0.1 MG PO; +FLORINEF ACETA0.1 MG PO; +LIORESAL 1010 MG/TAB PO; +NITROSTAT0.4 MG/TAB SL; +OXYCODONE PO; +PROAMATINE2.5 MG PO; +PROTONIX 40MG T40 MG PO; +SEROQUEL XR50 MG PO; +XANAX 0.5MG0.5 MG PO; +[UNRECOGNIZED DRUG - OTHER] PO
[2019-06-18] MEDS ORDERED: LIPITOR 40MG TA40 MG PO (09:25)
[2019-06-18] MEDS ORDERED: PRISTIQ100 MG PO (09:29)
[2019-06-18] MEDS ORDERED: KEPPRA1000 MG PO (09:31)
[2019-06-18] MEDS ORDERED: K-TAB20 PO (09:33)
[2019-06-18] MEDS ORDERED: KAPSPARGO SPRIN25 MG PO (09:36)
[2019-06-18] MEDS ORDERED: MAXALT10 MG PO (09:36)
[2019-06-18] MEDS ORDERED: NEURONTIN300 MG/CAP PO (09:37)
[2019-06-18] MEDS ORDERED: MAG-OX 400400 MG/TAB PO (09:37)
[2019-06-18] MEDS ORDERED: AIMOVIG AU70 MG/1 ML SQ (09:38)
[2019-06-18] MEDS ORDERED: TOPAMAX 100MG100 M1 PO (09:38)
[2019-06-18 10:44] LABS: HEMATOCRIT 43.8 % (37.0-47.0); HEMOGLOBIN 14.5 g/dl (12.5-16.0); MEAN CELL VOLUME 87 fl (80.0-100.0); MEAN CORPUSCULAR HEMOGLOBIN 29 pg (27.0-31.0); MEAN CORPUSCULAR HGB CONC 33 g/dl (33.0-37.0); MEAN PLATELET VOLUME 10.2 fl (7.4-10.4); PLATELET COUNT 281 K/mm3 (130-400); RED BLOOD COUNT 5.06 M/mm3 (4.10-5.30); REDCELL DISTRIBUTION WIDTH-CV 12.9 % (11.5-14.5)
[2019-06-18 10:45] LABS: PROTHROMBIN TIME 12.2 SECONDS (9.7-12.8)
[2019-06-18 10:51] LABS: CALCIUM 10.2 mg/dL (8.4-10.2); CREATININE, serum 0.74 (0.52-1.25)
--- NOTE | 2019-06-18 12:30 | NUR ---
Discussed with patient and family that they would be next after this procedure. Apologized for the delay. Informed patient and friend that they would be kept updated regarding timing of procedure. No others needs at this time. Patient is prepped and ready for procedure at this time.
--- NOTE | 2019-06-18 13:26 | NUR ---
This nurse went to update patient and friend. Patient resting in bed with eyes closed. Friend updated on the delay, physician is still in a procedure at this time and apologized for the delay. No others needs at this time. Will continue to keep informed.
--- NOTE | 2019-06-18 14:24 | NUR ---
ALL MEDICATIONS GIVEN VORB WITH MD. SEE MERGE FOR ALL MEDICATION ADMIN TIMES. SEE MERGE FOR ALL RASS ASSESSMENTS DURING AND AFTER PROCEDURE. POSITIVE BARBEAU'S TEST IN THE RIGHT WRIST, RADIAL PULSE +2.
--- NOTE | 2019-06-18 15:12 | NUR ---
Patient transfered back to room 12 at this time. Patient hooked back to monitoring equipment, VS stable. Patient denies pain at this time. Visualized right radial site with JENNIFER Godwin. TR band remains in place with 12 ml of air in the band. No oozing or hematoma noted. Site is soft and nontender, cap refill <3. Discussed importance of wrist restrictions with patient and friend. All questions and concerns addressed at this time. Bed in locked and lowest position, call light within reach.
--- NOTE | 2019-06-18 15:19 | NUR ---
Back from public works laborer. Alert and oriented, denies pain at this time. Right Tband with 12 cc air noted CD&I, good pulses and cap refill <3 secs noted.
--- NOTE | 2019-06-18 17:26 | NUR ---
Right TBand deflated over 20 mins with all 12 cc air out and no bleeding noted. Pressure dressing placed and teaching done about keeping incision covered with bandaid for an additional three days. IV discontinued intact.
--- NOTE | 2019-06-18 17:54 | NUR ---
Discharge instructins given. Pt transferred to private car by ting
== END 2019-06-18 17:55 | disposition home or self-care (01) ==
LOC: COL.CAR 08:41
PROVIDERS: Internal Medicine Cardiovascular Disease
DX: I20.9 Angina pectoris, unspecified (principal); I95.9 Hypotension, unspecified; G90.1 Familial dysautonomia [Riley-Day]; R60.0 Localized edema; I10 Essential (primary) hypertension; E03.9 Hypothyroidism, unspecified; I25.2 Old myocardial infarction; Z79.82 Long term (current) use of aspirin; Z90.49 Acquired absence of other specified parts of digestive tract; Z90.710 Acquired absence of both cervix and uterus; Z83.3 Family history of diabetes mellitus; Z82.49 Family history of ischemic heart disease and other diseases of the circulatory system; Z88.1 Allergy status to other antibiotic agents; Z88.8 Allergy status to other drugs, medicaments and biological substances
CPT/HCPCS: J1644; J2250; J3010; Q9967

== ENCOUNTER → 2019-07-18 | Outpatient (CLI) | payer MEDICARE ==
[~2019-07-18] MED LIST changes: +AIMOVIG AU70 MG/1 ML SQ; +K-TAB20 PO; +KAPSPARGO SPRIN25 MG PO; +NEURONTIN300 MG/CAP PO; +PRISTIQ100 MG PO; +TOPAMAX 100MG100 M1 PO
== END ==
LOC: MHCPAIN 09:40
DX: G89.29 Other chronic pain (principal); M47.817 Spondylosis without myelopathy or radiculopathy, lumbosacral region; M53.3 Sacrococcygeal disorders, not elsewhere classified; M47.814 Spondylosis without myelopathy or radiculopathy, thoracic region
CPT/HCPCS: G0463

== ENCOUNTER 2019-09-09 05:49 | Emergency (ER) | payer MEDICARE ==
[~2019-09-09] VITALS: Ht 157.5 cm; Wt 54.6 kg
[2019-09-09 06:11] VITALS: TEMP 98.5
[2019-09-09] MEDS ORDERED: TORADOL 10MG TA10 MG PO (07:50)
[2019-09-09] MEDS ORDERED: ZOMIG5 MG PO (07:51)
[2019-09-09 11:55] VITALS: BP 97/60; PULSE 59
== END 2019-09-09 11:55 | disposition home or self-care (01) ==
LOC: COL.ER 05:49
DX: G43.909 Migraine, unspecified, not intractable, without status migrainosus (principal)
CPT/HCPCS: J1170; J1200; J1720; J1885; J7030

== ENCOUNTER 2019-10-29 11:51 | Emergency (ER) | payer MEDICARE ==
[~2019-10-29] VITALS: Ht 157.5 cm; Wt 54.4 kg
[~2019-10-29 11:51] MED LIST changes: +TORADOL 10MG TA10 MG PO
[2019-10-29 11:59] VITALS: TEMP 98.4
[2019-10-29 13:01] LABS: BASO % 0.4 % (0.0-2.0); EOS % 0.5 % (0-4.0); GRAN # 3.8 (1.4-6.5); GRAN % 68.1 % (42.2-75.2); HEMOGLOBIN 11.3 g/dl (12.5-16.0); LYMPH # 1.3 (1.2-3.4); LYMPH % 23.1 % (20.0-51.0); MEAN CELL VOLUME 86 fl (80.0-100.0); MEAN CORPUSCULAR HEMOGLOBIN 29 pg (27.0-31.0); MEAN CORPUSCULAR HGB CONC 33 g/dl (33.0-37.0); MEAN PLATELET VOLUME 11.2 fl (7.4-10.4); MONO # 0.4 (0.1-0.6); MONO % 7.7 % (1.7-9.3); PLATELET COUNT 216 K/mm3 (130-400); RED BLOOD COUNT 3.96 M/mm3 (4.10-5.30); REDCELL DISTRIBUTION WIDTH-CV 12.8 % (11.5-14.5)
[2019-10-29 13:02] LABS: HEMATOCRIT 34.1 % (37.0-47.0)
[2019-10-29 13:12] LABS: ALANINE AMINOTRANSFERASE 75 U/L (9-52); ALBUMIN 3.9 gm/dL (3.5-5.0); ALKALINE PHOSPHATASE 48 U/L (50-136); ANION GAP 7 mmol/L (7-16); AST,SGOT 44 U/L (15-37); BILIRUBIN,TOTAL 0.4 mg/dL (0.0-1.0); BLOOD UREA NITROGEN 19 mg/dL (7-17); CALCIUM 9.1 mg/dL (8.4-10.2); CARBON DIOXIDE 26 mmol/L (22-30); CHLORIDE 108 mmol/L (98-107); CREATININE, serum 0.42 (0.52-1.25); GLUCOSE 104 mg/dL (74-106); LIPASE 154 U/L (23-300); SODIUM 140 mmol/L (137-145); TOTAL PROTEIN 6.5 gm/dL (6.4-8.2)
[2019-10-29 13:25] LABS: TROPONIN-I < 0.012 ng/mL (0.000-0.035)
[2019-10-29 14:53] LABS: C-REACTIVE PROTEIN < 0.5 mg/dL (0.0-0.9)
[2019-10-29] MEDS ORDERED: NORCO 325 MG-51 TAB PO (16:02)
[2019-10-29 16:03] VITALS: BP 116/76
[2019-10-29 16:51] VITALS: PULSE 60
== END 2019-10-29 16:51 | disposition home or self-care (01) ==
LOC: COL.ER 11:51
PROVIDERS: Emergency Medicine
DX: R07.89 Other chest pain (principal); F43.10 Post-traumatic stress disorder, unspecified; G40.909 Epilepsy, unspecified, not intractable, without status epilepticus; E03.9 Hypothyroidism, unspecified; Z95.9 Presence of cardiac and vascular implant and graft, unspecified; Z90.710 Acquired absence of both cervix and uterus; Z90.89 Acquired absence of other organs
CPT/HCPCS: J1170; J1885; J7030

== ENCOUNTER 2019-12-22 16:22 | Emergency (ER) | payer MEDICARE ==
[~2019-12-22] VITALS: Ht 157.5 cm; Wt 52.3 kg
[2019-12-22 16:45] VITALS: TEMP 98.8
[2019-12-22] MEDS ORDERED: KEPPRA 500MG500 MG PO (17:56)
[2019-12-22 19:40] VITALS: BP 107/74; PULSE 86
== END 2019-12-22 19:40 | disposition home or self-care (01) ==
LOC: COL.ER 16:22
DX: G43.909 Migraine, unspecified, not intractable, without status migrainosus (principal); F43.10 Post-traumatic stress disorder, unspecified
CPT/HCPCS: J1200; J1630; J1885; J2405; J7030

== ENCOUNTER 2020-01-01 11:15 | Outpatient (RCR) | payer MEDICARE, MEDICAID | END 2020-01-06 | disposition home or self-care (01) | LOC: WSST | DX: G31.84 Mild cognitive impairment of uncertain or unknown etiology (principal); F33.9 Major depressive disorder, recurrent, unspecified; F43.12 Post-traumatic stress disorder, chronic ==

== ENCOUNTER → 2020-02-29 | Outpatient (CLI) | payer MEDICARE, MEDICAID ==
[~2020-02-29] MED LIST changes: +NORTHERA PO; +SPRAVATO NS
== END ==
LOC: COL.RAD 07:55
DX: M54.6 Pain in thoracic spine (principal)

== ENCOUNTER 2020-03-03 18:35 | Emergency (ER) | payer MEDICARE, MEDICAID ==
[~2020-03-03] VITALS: Ht 157.5 cm; Wt 56.8 kg
[2020-03-03 18:44] VITALS: TEMP 98.1
[2020-03-03 19:58] VITALS: BP 123/75; PULSE 85
== END 2020-03-03 21:00 | disposition home or self-care (01) ==
LOC: COL.ER 18:35
DX: S80.02XA Contusion of left knee, initial encounter (principal); S90.222A Contusion of left lesser toe(s) with damage to nail, initial encounter; W10.8XXA Fall (on) (from) other stairs and steps, initial encounter; Y92.009 Unspecified place in unspecified non-institutional (private) residence as the place of occurrence of the external cause; Z79.51 Long term (current) use of inhaled steroids
CPT/HCPCS: J1885

== ENCOUNTER 2020-03-05 09:00 | Outpatient (RCR) | payer MEDICARE, MEDICAID ==
[2020-01-30 17:34] VITALS: BP 103/67; PULSE 74; TEMP 98.2
--- NOTE | 2020-01-30 18:05 | NUR ---
pT HAS BEEN NAPPING, AND WOKE UP WITH ITCHING TO ARMS, NECK, AND REPORTS THROAT FEELS SCRATCHY. NO RASH OR HIVES OBSERVED, NO DIFFICULTY BREATHING. BP 126/79, HR 80, RR 20 O2 SAT 97%. BENADRYL ADMINISTERED ORDERED PRN. IRON INFUSION STOPPED.
[2020-01-30 18:56] VITALS: BP 113/76; PULSE 77
[2020-02-05 16:43] VITALS: BP 107/73; PULSE 77; TEMP 98.7
[2020-02-05 17:55] VITALS: BP 114/80; PULSE 83
--- NOTE | 2020-02-18 14:11 | NUR ---
CALLED PT FOR INFECTIOUS DISEASE SCREENING. LEFT MESSAGE FOR PT TO CALL US before she come to appointment if she has developed any viral symptoms or if she has had any expo
[2020-02-19 18:07] VITALS: BP 114/71; PULSE 78; TEMP 98.4
--- NOTE | 2020-02-25 17:13 | NUR ---
LEFT VOICEMAIL MESSAGE WITH PT ASKING HER TO CALL AND CHECK IN WITH US BEFORE COMING TO APPOINTMENT IF SHE HAS DEVELOPED ANY FEVER, COUGH, SOB OR OTHER VIRAL SYMPTOMS.
[2020-02-26 14:27] VITALS: BP 116/62; PULSE 87; TEMP 98.2
[~2020-03-05] VITALS: Ht 157.5 cm; Wt 54.7 kg
[2020-03-05 10:19] VITALS: BP 110/58; PULSE 79; TEMP 97.8
== END 2020-03-06 17:50 | disposition still patient (30) ==
LOC: EUO 09:00
DX: Z11.59 Encounter for screening for other viral diseases (principal); D50.9 Iron deficiency anemia, unspecified
CPT/HCPCS: J1200; J2916; J2920

== ENCOUNTER 2020-04-22 00:59 | Emergency (ER) | payer MEDICARE, MEDICAID ==
[~2020-04-22] VITALS: Ht 157.5 cm; Wt 56.8 kg
[2020-04-22 01:02] VITALS: TEMP 97.6
[2020-04-22 01:54] LABS: COLLECTION METHOD CATHETER
[2020-04-22 02:03] LABS: PH 6 (5-8); SQUAMOUS EPITHELIAL 0-2 /hpf; URINE APPEARANCE Clear; URINE BACTERIA None Seen /hpf; URINE BILIRUBIN Negative (NEGATIVE); URINE BLOOD Negative (NEGATIVE); URINE COLOR Yellow; URINE GLUCOSE Negative (NEGATIVE); URINE KETONE Negative (NEGATIVE); URINE LEUKOCYTE ESTERASE Negative (NEGATIVE); URINE NITRATE Negative (NEGATIVE); URINE PROTEIN(semi-quant) Negative (NEGATIVE); URINE RBC 0-2 /hpf; URINE UROBILINOGEN Negative (NEGATIVE)
[2020-04-22 02:31] LABS: BASO % 0.5 % (0.0-2.0); EOS # 0.1 (0.0-0.7); EOS % 1.7 % (0-4.0); GRAN # 3.5 (1.4-6.5); GRAN % 54.4 % (42.2-75.2); HEMOGLOBIN 11.9 g/dl (12.5-16.0); LYMPH # 2.2 (1.2-3.4); MEAN CELL VOLUME 88 fl (80.0-100.0); MEAN CORPUSCULAR HEMOGLOBIN 28 pg (27.0-31.0); MEAN CORPUSCULAR HGB CONC 32 g/dl (33.0-37.0); MEAN PLATELET VOLUME 10.8 fl (7.4-10.4); MONO # 0.5 (0.1-0.6); MONO % 8.2 % (1.7-9.3); PLATELET COUNT 201 K/mm3 (130-400); RED BLOOD COUNT 4.22 M/mm3 (4.10-5.30); REDCELL DISTRIBUTION WIDTH-CV 13.4 % (11.5-14.5)
[2020-04-22 02:42] LABS: ALANINE AMINOTRANSFERASE 15 U/L (4-34); ALBUMIN 3.8 gm/dL (3.5-5.0); ALKALINE PHOSPHATASE 76 U/L (50-136); ANION GAP 5 mmol/L (7-16); AST,SGOT 21 U/L (15-37); BILIRUBIN,TOTAL 0.3 mg/dL (0.0-1.0); BLOOD UREA NITROGEN 22 mg/dL (7-17); CALCIUM 8.9 mg/dL (8.4-10.2); CARBON DIOXIDE 25 mmol/L (22-30); CHLORIDE 110 mmol/L (98-107); CREATININE, serum 0.72 (0.52-1.25); GLUCOSE 84 mg/dL (74-106); LIPASE 70 U/L (23-300); POTASSIUM 3.6 mmol/L (3.4-5.0); SODIUM 139 mmol/L (137-145); TOTAL PROTEIN 6.6 gm/dL (6.4-8.2)
[2020-04-22 02:44] LABS: C-REACTIVE PROTEIN < 0.5 mg/dL (0.0-0.9)
[2020-04-22 04:30] VITALS: BP 109/75; PULSE 85
== END 2020-04-22 04:30 | disposition home or self-care (01) ==
LOC: COL.ER 00:59
PROVIDERS: Emergency Medicine
DX: R10.84 Generalized abdominal pain (principal); Z90.49 Acquired absence of other specified parts of digestive tract; Z90.89 Acquired absence of other organs; Z90.710 Acquired absence of both cervix and uterus
CPT/HCPCS: J2270

== ENCOUNTER 2020-06-16 23:13 | Observation (INO) | payer MEDICARE, MEDICAID ==
[~2020-06-16] VITALS: Ht 157.5 cm; Wt 56.8 kg
[2020-06-16 23:51] LABS: BASO # 0.1 (0.0-0.2); BASO % 0.9 % (0.0-2.0); EOS # 0.2 (0.0-0.7); EOS % 3.1 % (0-4.0); GRAN # 2.5 (1.4-6.5); GRAN % 43.1 % (42.2-75.2); HEMATOCRIT 40.7 % (37.0-47.0); HEMOGLOBIN 13.1 g/dl (12.5-16.0); LYMPH # 2.5 (1.2-3.4); LYMPH % 43.5 % (20.0-51.0); MEAN CELL VOLUME 90 fl (80.0-100.0); MEAN CORPUSCULAR HEMOGLOBIN 29 pg (27.0-31.0); MEAN CORPUSCULAR HGB CONC 32 g/dl (33.0-37.0); MEAN PLATELET VOLUME 10.9 fl (7.4-10.4); MONO # 0.5 (0.1-0.6); MONO % 9.1 % (1.7-9.3); PLATELET COUNT 259 K/mm3 (130-400); REDCELL DISTRIBUTION WIDTH-CV 13.7 % (11.5-14.5)
[2020-06-17 00:16] LABS: ALANINE AMINOTRANSFERASE 21 U/L (4-34); ALBUMIN 4.5 gm/dL (3.5-5.0); ALKALINE PHOSPHATASE 102 U/L (50-136); ANION GAP 8 mmol/L (7-16); AST,SGOT 27 U/L (15-37); BILIRUBIN,TOTAL 0.4 mg/dL (0.0-1.0); BLOOD UREA NITROGEN 15 mg/dL (7-17); CALCIUM 9.5 mg/dL (8.4-10.2); CARBON DIOXIDE 26 mmol/L (22-30); CHLORIDE 105 mmol/L (98-107); CREATININE, serum 0.68 (0.52-1.25); GLUCOSE 86 mg/dL (74-106); POTASSIUM 3.8 mmol/L (3.4-5.0); SODIUM 139 mmol/L (137-145); TOTAL PROTEIN 7.8 gm/dL (6.4-8.2)
[2020-06-17 00:17] LABS: C-REACTIVE PROTEIN < 0.5 mg/dL (0.0-0.9)
[2020-06-17 07:57] LABS: BASO % 0.5 % (0.0-2.0); EOS # 0.2 (0.0-0.7); EOS % 3.3 % (0-4.0); GRAN # 2.7 (1.4-6.5); GRAN % 49.6 % (42.2-75.2); HEMOGLOBIN 11.8 g/dl (12.5-16.0); LYMPH % 36.6 % (20.0-51.0); MEAN CELL VOLUME 89 fl (80.0-100.0); MEAN CORPUSCULAR HEMOGLOBIN 29 pg (27.0-31.0); MEAN CORPUSCULAR HGB CONC 33 g/dl (33.0-37.0); MEAN PLATELET VOLUME 10.6 fl (7.4-10.4); MONO # 0.5 (0.1-0.6); MONO % 9.8 % (1.7-9.3); PLATELET COUNT 223 K/mm3 (130-400); RED BLOOD COUNT 4.01 M/mm3 (4.10-5.30); REDCELL DISTRIBUTION WIDTH-CV 13.4 % (11.5-14.5)
[2020-06-17 07:59] LABS: HEMATOCRIT 35.6 % (37.0-47.0)
[2020-06-17 11:58] VITALS: BP 102/66; PULSE 68; TEMP 98.1
[2020-06-17 15:43] VITALS: BP 103/62; PULSE 77; TEMP 98.8
--- NOTE | 2020-06-17 18:45 | NUR ---
Assessment completed, alert/oriented, vital signs stable, right arm swelling noted, patient reports pain 5-05/30, ortho was consulted and evaluated patient/ did not indicated any need for sx intervention at this time, cap refill WNL and no signs of impaired circulation or compartmental syndrome, heart RRR, lungs CTA, no resp.difficulty noted, denies needs
[2020-06-17 19:32] VITALS: BP 106/61; PULSE 101; TEMP 98.8
--- NOTE | 2020-06-17 19:48 | NUR ---
Assessment completed. Swelling right upper extremity, skin tight. Pt reports pain /10. PRN Garibaldi given per orders and by pt's request. Pt reports pain with moving or touching RUE. Right hand embroidery machine operator weak due to pain. No other abnormal findings noted. IV to left AC intact and flushes easily. Pt denies other needs at this time. Will continue to monitor.
[2020-06-17 23:12] VITALS: BP 97/57; PULSE 70; TEMP 98.2
[2020-06-18 04:36] VITALS: BP 107/62; PULSE 77; TEMP 98.1
--- NOTE | 2020-06-18 05:28 | NUR ---
Pt has reported pain to right arm. PO [place] given once and IV Morphine given twice per orders and pt request. Reports intermittent nausea. Pt has been sleeping in bed since last dose of morphine around 0120.
[2020-06-18 07:04] LABS: ANION GAP 5 mmol/L (7-16); BLOOD UREA NITROGEN 16 mg/dL (7-17); CALCIUM 9.4 mg/dL (8.4-10.2); CARBON DIOXIDE 27 mmol/L (22-30); CHLORIDE 107 mmol/L (98-107); CREATININE, serum 0.58 (0.52-1.25); GLUCOSE 93 mg/dL (74-106); POTASSIUM 3.7 mmol/L (3.4-5.0); SODIUM 138 mmol/L (137-145)
[2020-06-18 07:16] LABS: TROPONIN-I < 0.012 ng/mL (0.000-0.035)
[2020-06-18 07:30] VITALS: BP 104/64; PULSE 78; TEMP 98.4
[2020-06-18] MEDS ORDERED: NORCO 325 MG-51 TAB PO (09:04)
--- NOTE | 2020-06-18 09:47 | NUR ---
Initial visit; Patient doing well and thanked Director Zone for looking in on her and offering God's blessings.
--- NOTE | 2020-06-18 11:19 | NUR ---
INT discontinued. Pain management is effective. 01/28 pain on right arm this am. Patient said " i am doing better today". Patient discharged home with family.
--- NOTE | 2020-06-18 11:21 | NUR ---
declined the use of nasal spay at this time. patient own medicaton was not administered this morning, med at home and there are discharge plans in place.
== END 2020-06-18 12:00 | disposition home or self-care (01) ==
LOC: COL.ER 23:13 → MEDICAL 06-17 10:36
PROVIDERS: Emergency Medicine; Physician Assistant; ADMIT Hospitalist
DX: M79.601 Pain in right arm (principal); I25.2 Old myocardial infarction; Z87.11 Personal history of peptic ulcer disease; E03.9 Hypothyroidism, unspecified; E55.9 Vitamin D deficiency, unspecified; G43.909 Migraine, unspecified, not intractable, without status migrainosus; F43.10 Post-traumatic stress disorder, unspecified; F32.9 Major depressive disorder, single episode, unspecified; I95.9 Hypotension, unspecified; E78.5 Hyperlipidemia, unspecified; N63.10 Unspecified lump in the right breast, unspecified quadrant; Z88.1 Allergy status to other antibiotic agents; Z88.8 Allergy status to other drugs, medicaments and biological substances; Z88.0 Allergy status to penicillin; Z90.49 Acquired absence of other specified parts of digestive tract; Z90.721 Acquired absence of ovaries, unilateral; Z90.710 Acquired absence of both cervix and uterus
CPT/HCPCS: G0378; J1170; J1200; J1885; J2060; J2270; J2405; J2930; J3010; J3370; J7040; J7050

== ENCOUNTER 2020-08-03 09:05 | Inpatient (IN) | payer MEDICARE, MEDICAID ==
[~2020-08-03] VITALS: Ht 157.5 cm; Wt 52.6 kg
[2020-08-03] MEDS ORDERED: NORCO 325 MG-101 TAB PO (10:45)
[2020-08-03] MEDS ORDERED: PROTONIX 40MG T40 MG PO (10:48)
[2020-08-03] MEDS ORDERED: CARAFATE 1GM1 G PO (10:49)
[2020-08-03] MEDS ORDERED: BOTOX 100100 U/VIAL IM (10:51)
[2020-08-03 11:25] VITALS: BP 107/73; PULSE 86; TEMP 98.2
[2020-08-03] MEDS ORDERED: MIRALAX PA17 GM/Dose PO (12:28)
[2020-08-03 14:05] LABS: COLLECTION METHOD CLEAN CATCH
[2020-08-03 14:13] LABS: PH 6 (5-8); URINE APPEARANCE Hazy; URINE BACTERIA Rare /hpf; URINE BILIRUBIN Negative (NEGATIVE); URINE BLOOD Negative (NEGATIVE); URINE COLOR Yellow; URINE GLUCOSE Negative (NEGATIVE); URINE KETONE Negative (NEGATIVE); URINE LEUKOCYTE ESTERASE Negative (NEGATIVE); URINE NITRATE Negative (NEGATIVE); URINE PROTEIN(semi-quant) Negative (NEGATIVE); URINE UROBILINOGEN Negative (NEGATIVE)
[2020-08-03] MEDS ORDERED: SENNA-LAX8.6 MG PO (15:02)
[2020-08-03] MEDS ORDERED: GOOD NEIGH3.4 GM/Dos PO (15:03)
[2020-08-03 15:20] VITALS: BP 103/68; PULSE 81; TEMP 97.9
[2020-08-03 15:44] VITALS: BP 103/68; PULSE 83; TEMP 97.9
[2020-08-03 22:02] VITALS: BP 107/68; PULSE 100; TEMP 98.2
[2020-08-04] VITALS (13 sets, daily range): BP systolic 98–116; BP diastolic 51–80; PULSE 74–97; TEMP 97.9–98.6
[2020-08-04 06:05] LABS: BASO % 0.6 % (0.0-2.0); EOS # 0.2 (0.0-0.7); EOS % 4.5 % (0-4.0); GRAN # 2.5 (1.4-6.5); GRAN % 48.3 % (42.2-75.2); HEMATOCRIT 39.1 % (37.0-47.0); HEMOGLOBIN 12.6 g/dl (12.5-16.0); LYMPH % 39.2 % (20.0-51.0); MEAN CELL VOLUME 90 fl (80.0-100.0); MEAN CORPUSCULAR HEMOGLOBIN 29 pg (27.0-31.0); MEAN CORPUSCULAR HGB CONC 32 g/dl (33.0-37.0); MEAN PLATELET VOLUME 10.3 fl (7.4-10.4); MONO # 0.4 (0.1-0.6); MONO % 7.2 % (1.7-9.3); PLATELET COUNT 234 K/mm3 (130-400); RED BLOOD COUNT 4.34 M/mm3 (4.10-5.30); REDCELL DISTRIBUTION WIDTH-CV 12.6 % (11.5-14.5)
[2020-08-04 06:15] LABS: ALBUMIN 3.8 gm/dL (3.5-5.0); BILIRUBIN,TOTAL 0.7 mg/dL (0.0-1.0); CALCIUM 8.9 mg/dL (8.4-10.2); CREATININE, serum 0.64 (0.52-1.25); MAGNESIUM 2.1 mg/dL (1.6-2.3); POTASSIUM 4.1 mmol/L (3.4-5.0); TOTAL PROTEIN 6.3 gm/dL (6.4-8.2)
[2020-08-04 06:45] LABS: THYROID STIMULATING HORMONE 5.55 uIU/mL (0.465-4.680)
== END 2020-08-04 19:15 | disposition home or self-care (01) | DRG 880 ==
LOC: MEDICAL 09:05
PROVIDERS: ADMIT Internal Medicine
DX: F41.9 Anxiety disorder, unspecified (principal); K44.9 Diaphragmatic hernia without obstruction or gangrene; K29.00 Acute gastritis without bleeding; N63.10 Unspecified lump in the right breast, unspecified quadrant; E55.9 Vitamin D deficiency, unspecified; G43.909 Migraine, unspecified, not intractable, without status migrainosus; F32.9 Major depressive disorder, single episode, unspecified; F43.10 Post-traumatic stress disorder, unspecified; E78.5 Hyperlipidemia, unspecified; G90.9 Disorder of the autonomic nervous system, unspecified; I25.10 Atherosclerotic heart disease of native coronary artery without angina pectoris; G40.909 Epilepsy, unspecified, not intractable, without status epilepticus; K58.1 Irritable bowel syndrome with constipation; Z88.0 Allergy status to penicillin; Z88.1 Allergy status to other antibiotic agents
CPT/HCPCS: 99222-AI; 99239; C9113; J1170; J1650; J2060; J2270; J2405; J2704; J7030; Q9967

== ENCOUNTER 2020-08-22 20:45 | Emergency (ER) | payer MEDICARE, MEDICAID ==
[~2020-08-22] VITALS: Ht 157.5 cm; Wt 59.1 kg
[~2020-08-22 20:45] MED LIST changes: +BOTOX 100100 U/VIAL IM; +CARAFATE 1GM1 G PO; +GOOD NEIGH3.4 GM/Dos PO; +MIRALAX PA17 GM/Dose PO; +NORCO 325 MG-101 TAB PO; +SENNA-LAX8.6 MG PO
[2020-08-22 21:20] LABS: COLLECTION METHOD CLEAN CATCH
[2020-08-22 21:25] LABS: MUCOUS Present /lpf; PH 6 (5-8); SQUAMOUS EPITHELIAL 0-2 /hpf; URINE APPEARANCE Clear; URINE BACTERIA None Seen /hpf; URINE BILIRUBIN Negative (NEGATIVE); URINE BLOOD Negative (NEGATIVE); URINE COLOR Yellow; URINE GLUCOSE Negative (NEGATIVE); URINE KETONE Negative (NEGATIVE); URINE LEUKOCYTE ESTERASE Negative (NEGATIVE); URINE NITRATE Negative (NEGATIVE); URINE PROTEIN(semi-quant) Negative (NEGATIVE); URINE RBC 0-2 /hpf; URINE UROBILINOGEN Negative (NEGATIVE)
[2020-08-22 21:50] LABS: BASO # 0.1 (0.0-0.2); BASO % 0.6 % (0.0-2.0); EOS # 0.2 (0.0-0.7); EOS % 2.4 % (0-4.0); GRAN # 4.7 (1.4-6.5); GRAN % 55.5 % (42.2-75.2); HEMATOCRIT 39.5 % (37.0-47.0); HEMOGLOBIN 13.1 g/dl (12.5-16.0); LYMPH # 2.9 (1.2-3.4); LYMPH % 33.6 % (20.0-51.0); MEAN CELL VOLUME 89 fl (80.0-100.0); MEAN CORPUSCULAR HEMOGLOBIN 30 pg (27.0-31.0); MEAN CORPUSCULAR HGB CONC 33 g/dl (33.0-37.0); MEAN PLATELET VOLUME 10.4 fl (7.4-10.4); MONO # 0.7 (0.1-0.6); MONO % 7.8 % (1.7-9.3); PLATELET COUNT 261 K/mm3 (130-400); RED BLOOD COUNT 4.44 M/mm3 (4.10-5.30); REDCELL DISTRIBUTION WIDTH-CV 12.5 % (11.5-14.5)
[2020-08-22 22:02] LABS: ALANINE AMINOTRANSFERASE 67 U/L (4-34); ALBUMIN 5.2 gm/dL (3.5-5.0); ALKALINE PHOSPHATASE 97 U/L (50-136); ANION GAP 10 mmol/L (7-16); AST,SGOT 56 U/L (15-37); BILIRUBIN,TOTAL 0.4 mg/dL (0.0-1.0); BLOOD UREA NITROGEN 15 mg/dL (7-17); CARBON DIOXIDE 26 mmol/L (22-30); CHLORIDE 105 mmol/L (98-107); CREATININE, serum 0.73 (0.52-1.25); GLUCOSE 82 mg/dL (74-106); LIPASE 69 U/L (23-300); POTASSIUM 3.7 mmol/L (3.4-5.0); SODIUM 142 mmol/L (137-145); TOTAL PROTEIN 8.5 gm/dL (6.4-8.2)
[2020-08-22 22:03] LABS: C-REACTIVE PROTEIN < 0.5 mg/dL (0.0-0.9)
[2020-08-23] MEDS ORDERED: FLEXERIL 1010 MG/TAB PO (00:03)
[2020-08-23 00:23] VITALS: BP 124/76; PULSE 80; TEMP 98.3
== END 2020-08-23 00:26 | disposition home or self-care (01) ==
LOC: COL.ER 20:45
PROVIDERS: Emergency Medicine
DX: R10.9 Unspecified abdominal pain (principal); M54.9 Dorsalgia, unspecified; I25.10 Atherosclerotic heart disease of native coronary artery without angina pectoris; E78.5 Hyperlipidemia, unspecified; Z90.710 Acquired absence of both cervix and uterus; Z88.0 Allergy status to penicillin; Z88.1 Allergy status to other antibiotic agents; Z88.8 Allergy status to other drugs, medicaments and biological substances
CPT/HCPCS: J2405; J3010; J7030; Q9967

== ENCOUNTER → 2020-09-09 | Outpatient (CLI) | payer MEDICARE, MEDICAID ==
[~2020-09-09] MED LIST changes: +FLEXERIL 1010 MG/TAB PO
== END ==
LOC: ZCOL.LAB 16:43
DX: Z20.828 Contact with and (suspected) exposure to other viral communicable diseases (principal)

== ENCOUNTER 2020-10-18 21:50 | Emergency (ER) | payer MEDICARE, MEDICAID ==
[~2020-10-18] VITALS: Ht 157.5 cm; Wt 59.1 kg
[2020-10-18 21:57] VITALS: TEMP 98.5
[2020-10-19] MEDS ORDERED: FLEXERIL 1010 MG/TAB PO (00:52)
[2020-10-19] MEDS ORDERED: MAALOX ADVANCE148 ML PO (00:52)
[2020-10-19] MEDS ORDERED: NAPROSYN 2250 MG/TAB PO (00:52)
[2020-10-19 01:06] VITALS: BP 119/85; PULSE 91
== END 2020-10-19 01:06 | disposition home or self-care (01) ==
LOC: COL.ER 21:50
DX: T76.11XA Adult physical abuse, suspected, initial encounter (principal); G43.909 Migraine, unspecified, not intractable, without status migrainosus; Z88.1 Allergy status to other antibiotic agents; Z88.0 Allergy status to penicillin; Z88.8 Allergy status to other drugs, medicaments and biological substances

== ENCOUNTER → 2021-05-04 | Outpatient (CLI) | payer MEDICARE, MEDICAID ==
[~2021-05-04] MED LIST changes: +BENTYL 20MG20 MG/TAB PO; +CLIMARA 0.1 PATCH.WK TD; +D3-5050000 IU PO; +MAALOX ADVANCE148 ML PO; +MINIPRESS 5M5 MG/CAP PO; +MINIPRESS2 MG PO; +NAPROSYN 2250 MG/TAB PO; +PHARMASSURE ZIN50 MG PO; +ROBITUSSIN DM 105 ML PO; +ROXICODONE 55 MG/TAB PO; +SEROQUEL XR200 MG PO; +VITAMIN C500 MG PO
== END ==
LOC: COL.LAB 15:34
DX: Z20.822 Contact with and (suspected) exposure to COVID-19 (principal)

== ENCOUNTER → 2021-05-05 | Outpatient (CLI) | payer MEDICARE, MEDICAID | LOC: COL.RAD 11:46 | DX: Z86.73 Personal history of transient ischemic attack (TIA), and cerebral infarction without residual deficits (principal) ==

== ENCOUNTER 2021-05-11 17:23 | Inpatient (IN) | payer MEDICARE, MEDICAID ==
[~2021-05-11] VITALS: Ht 157.5 cm; Wt 61.4 kg
[2021-05-11 19:10] LABS: BASO % 0.2 % (0.0-2.0); EOS # 0.2 (0.0-0.7); EOS % 1.9 % (0-4.0); GRAN # 5.6 (1.4-6.5); GRAN % 69.4 % (42.2-75.2); LYMPH # 1.5 (1.2-3.4); LYMPH % 18.4 % (20.0-51.0); MEAN CELL VOLUME 86 fl (80.0-100.0); MEAN CORPUSCULAR HGB CONC 33 g/dl (33.0-37.0); MEAN PLATELET VOLUME 10.2 fl (7.4-10.4); MONO # 0.8 (0.1-0.6); MONO % 9.7 % (1.7-9.3); PLATELET COUNT 385 K/mm3 (130-400); RED BLOOD COUNT 3.33 M/mm3 (4.10-5.30); REDCELL DISTRIBUTION WIDTH-CV 13.6 % (11.5-14.5)
[2021-05-11 19:20] LABS: HEMATOCRIT 28.6 % (37.0-47.0); HEMOGLOBIN 9.3 g/dl (12.5-16.0); MEAN CORPUSCULAR HEMOGLOBIN 28 pg (27.0-31.0)
[2021-05-11 19:22] LABS: ALBUMIN 3.1 gm/dL (3.5-5.0); BILIRUBIN,TOTAL 0.1 mg/dL (0.0-1.0); CALCIUM 8.8 mg/dL (8.4-10.2); CREATININE, serum 0.4 (0.52-1.25); POTASSIUM 3.3 mmol/L (3.4-5.0); TOTAL PROTEIN 5.9 gm/dL (6.4-8.2)
[2021-05-11 21:42] LABS: INR 1.6 (0.8-3.0); PROTHROMBIN TIME 17.6 SECONDS (9.7-12.8)
[2021-05-12] VITALS (7 sets, daily range): BP systolic 81–125; BP diastolic 42–82; PULSE 70–98; TEMP 97.8–99.2
[2021-05-12] MEDS ORDERED: PERCOCET 325 MG1 TA2 PO (00:12)
--- NOTE | 2021-05-12 05:16 | NUR ---
MRs Luther is 41 year-old who came for hemoptisis. She AOX3, stanby to the bathroom. She rated her pain 7/10. Dilaudid 0.5 IV push was given. She was coughing and vomiting blood i gave her zofran then reassessed her, then stop movited. Vitals are stable. Will continue to monitor.
[2021-05-12 07:45] LABS: BASO % 0.4 % (0.0-2.0); EOS # 0.2 (0.0-0.7); EOS % 2.4 % (0-4.0); GRAN % 74.1 % (42.2-75.2); LYMPH # 1.3 (1.2-3.4); LYMPH % 13.6 % (20.0-51.0); MEAN CELL VOLUME 86 fl (80.0-100.0); MEAN CORPUSCULAR HGB CONC 32 g/dl (33.0-37.0); MEAN PLATELET VOLUME 10.7 fl (7.4-10.4); MONO # 0.9 (0.1-0.6); MONO % 9.1 % (1.7-9.3); PLATELET COUNT 342 K/mm3 (130-400); RED BLOOD COUNT 3.37 M/mm3 (4.10-5.30); REDCELL DISTRIBUTION WIDTH-CV 13.8 % (11.5-14.5)
[2021-05-12 07:52] LABS: HEMATOCRIT 28.8 % (37.0-47.0); HEMOGLOBIN 9.3 g/dl (12.5-16.0); MEAN CORPUSCULAR HEMOGLOBIN 28 pg (27.0-31.0)
[2021-05-12 09:14] LABS: CALCIUM 8.1 mg/dL (8.4-10.2); CREATININE, serum 0.33 (0.52-1.25); MAGNESIUM 2.2 mg/dL (1.6-2.3); POTASSIUM 4.1 mmol/L (3.4-5.0)
--- NOTE | 2021-05-12 10:53 | NUR ---
SW met with the patient to discuss discharge plan. The patient was very guarded during intake. The patient states that she is apart of the [facility]. She states that her address is listed in [place], but that she lives in [place] with her two daughters. She did not want to give SW the age of her children and asked why SW needs to know this. Per social work nurse, Jackie's note, on the patient on 12/26/20. The patient's children are 11 and 13 years-old. The patient reports that she is independent with ADLs and does not have any DME. The patient states that her PCP is Dr. Vela at [facility]. The patient's DPOA-HC is in EMR and it lists 1) Alejandro Arias (ph#[phone]) 2) Zoltan Roblero (ph#[phone]). The patient plans to return home upon discharge. No additional needs at this time. *Discharge plan: home with children*
--- NOTE | 2021-05-12 11:30 | NUR ---
Patient has been sleeping most the morning. She is having some anxiety at times and her moods change quickly. This morning she was upset about being admitted and having to stay. She will be crying at times and than will get upset with the staff for orders that the were explained to her. She was upset this morning about the sputum culture. She stated that she was not told how to do it properly. She stated that was told to do it into the disposable bag. Explained the reason we need it. She has not produced any sputum since about 0800 and it was not very much. She denies nausea. She continues to rate her pain high. She has been getting pain medication when requested. No other changes at this time. Call light within reach.
--- NOTE | 2021-05-12 19:00 | NUR ---
Patient has been upset most the afternoon. She keeps crying about her family not being available to see her. She started to cough up blood again. Sputum sent to lab as ordered. She denies nausea at this time. She was given dilauded for pain. She has been having increased pain this afternoon and is getting dilauded every 2 hours. She is on a general diet but is following her blenderized diet per her surgery. She will be NPO after midnight incase she has a broncoscopy tomorrow. No other changes at this time. Call light within reach.
--- NOTE | 2021-05-12 19:42 | NUR ---
RECEIVED CHANGE OF SHIFT REPORT FROM DAY SHIFT NURSE.
[2021-05-13] VITALS (7 sets, daily range): BP systolic 83–114; BP diastolic 50–75; PULSE 58–92; TEMP 97.5–98.5
[2021-05-13 05:44] LABS: BASO % 0.4 % (0.0-2.0); EOS # 0.3 (0.0-0.7); EOS % 4.1 % (0-4.0); GRAN # 5.1 (1.4-6.5); GRAN % 65.4 % (42.2-75.2); LYMPH # 1.6 (1.2-3.4); LYMPH % 20.4 % (20.0-51.0); MEAN CELL VOLUME 89 fl (80.0-100.0); MEAN CORPUSCULAR HGB CONC 32 g/dl (33.0-37.0); MEAN PLATELET VOLUME 10.5 fl (7.4-10.4); MONO # 0.7 (0.1-0.6); MONO % 9.3 % (1.7-9.3); PLATELET COUNT 364 K/mm3 (130-400); RED BLOOD COUNT 2.96 M/mm3 (4.10-5.30); REDCELL DISTRIBUTION WIDTH-CV 14.3 % (11.5-14.5)
[2021-05-13 05:52] LABS: HEMATOCRIT 26.2 % (37.0-47.0); HEMOGLOBIN 8.4 g/dl (12.5-16.0); MEAN CORPUSCULAR HEMOGLOBIN 28 pg (27.0-31.0)
[2021-05-13 06:01] LABS: CALCIUM 7.9 mg/dL (8.4-10.2); CREATININE, serum 0.41 (0.52-1.25); POTASSIUM 3.5 mmol/L (3.4-5.0)
--- NOTE | 2021-05-13 07:05 | NUR ---
CHANGE OF SHIFT REPORT GIVEN TO DAY SHIFT NURSE, ZEYNEP RODRIGUEZ. PATIENT GIVEN PRN IV PAIN MEDS WHEN REQUESTED THROUGH THE NIGHT, PATIENT MADE NPO AFTER MIDNIGHT WITH VERBALIZED UNDERSTAND BY PATIENT OF INTAKE STATUS. UP TO BATHROOM INDEPENDENTLY WITH NO REPORTED PROBLEMS OR CONCERNS. IVF PER PORTACATH TO RIGHT CHEST, INFUSING WITH NO PROBLEMS.
[2021-05-13 10:42] LABS: INR 1.6 (0.8-3.0); PROTHROMBIN TIME 18.1 SECONDS (9.7-12.8)
--- NOTE | 2021-05-13 15:13 | NUR ---
Patient had a bag delivered from a friend. She than became confused and was not able to make sense. She was stumbling in the hallway and was saying one of the nurses was her hairdresser. While patient was out of the room, the charge nurse and another nurse searched the room and found several pill bottles in her bag. We are not sure which ones she took. Notified Dr Todd, he ordered a drug screen. Patient continues to be confused. The medications found were oxycodone, northera, alprazolam, and dicyclomine. Several aromatherapy oils as well. No other changes at this time. Will continue to monitor the patient. Will notifiy Dr Todd of the drug screen, once done.
[2021-05-13 15:49] LABS: TRICYCLIC ANTIDEPRESS URINE NEGATIVE
--- NOTE | 2021-05-13 16:00 | NUR ---
Patient is back to being oriented. She is a little drowsy but oriented. She did say that she took an ativan. Asked how many she took and she stated just one. She did not remember being unsteady or walking to the desk in the hallway. Reminded her of some of the things she said and did, she stated she was just trying to be funny but nobody understood her. Explained that we took her medications and sent them to pharmacy so she won't take anymore. She stated that she understood. She said she was feel very anxious about everything and did not think anyone would order her ativan. Explained that she needs to call before getting up now because we will have the bed alarm on in case she is unsteady. No other changes at this time. Call light within reach.
[2021-05-13 18:16] LABS: PROCALCITONIN 0.05 ng/mL (0.00-0.09)
--- NOTE | 2021-05-13 18:30 | NUR ---
Patient is doing better with her confusion this evening. She is still drowsy at times. Explained again that her visitors can not bring anymore medications to her, she stated she understood. She is asking for pain medications, explained that Dr Todd changed her dose to Q8H and she could not have it again. Offered her the pain pill and she stated that will not help her at the moment. No other changes at this time. Call light within reach.
[2021-05-13 19:29] LABS: C-ANCA 39 U/mL (0-99)
--- NOTE | 2021-05-13 20:40 | NUR ---
Patient in bed resting. Alert and oriented, patient answers questions appropriately. States pain to lungs 7/10, medications given per orders. Lap sites with edges well approximated, port to right chest without complications; fluids and antibiotics infusing per orders. Patient denies further needs at this time.
--- NOTE | 2021-05-13 22:40 | NUR ---
Patient requesting bentyl for cramps, medications given per orders. Patient upset that her home meds were taken away from her. Educated patient on medication safety and reason as to why medications were taken away by day shift. Patient verbalises understanding.
[2021-05-14] VITALS (12 sets, daily range): BP systolic 99–127; BP diastolic 48–77; PULSE 64–102; TEMP 98–98.3
[2021-05-14 06:18] LABS: BASO % 0.3 % (0.0-2.0); EOS # 0.1 (0.0-0.7); EOS % 0.7 % (0-4.0); GRAN # 6.8 (1.4-6.5); GRAN % 72.3 % (42.2-75.2); LYMPH # 1.7 (1.2-3.4); LYMPH % 18.4 % (20.0-51.0); MEAN CELL VOLUME 87 fl (80.0-100.0); MEAN CORPUSCULAR HGB CONC 32 g/dl (33.0-37.0); MEAN PLATELET VOLUME 10.8 fl (7.4-10.4); MONO # 0.7 (0.1-0.6); MONO % 7.6 % (1.7-9.3); PLATELET COUNT 425 K/mm3 (130-400); RED BLOOD COUNT 3.22 M/mm3 (4.10-5.30); REDCELL DISTRIBUTION WIDTH-CV 14.3 % (11.5-14.5)
[2021-05-14 06:27] LABS: MEAN CORPUSCULAR HEMOGLOBIN 28 pg (27.0-31.0)
[2021-05-14 06:30] LABS: CALCIUM 8.5 mg/dL (8.4-10.2); CREATININE, serum 0.42 (0.52-1.25); POTASSIUM 3.7 mmol/L (3.4-5.0)
--- NOTE | 2021-05-14 06:35 | NUR ---
Patient doing well throughout the night. Pain medications given per orders for "lung pain". Patient NPO for bronchoscopy today. Fluids and antibiotics infusing per orders. Denies further needs at this time. Will report off to day shift.
--- NOTE | 2021-05-14 07:26 | NUR ---
PT UP IN BED. A/O X3. PT TO ENDO FOR BRONCH.
--- NOTE | 2021-05-14 10:52 | NUR ---
PT TO ROOM 331 PER CART WITH REPORT FROM VITALY RODRIGUEZ PACU @4919. PT IS A/O X3. DRY COUGH NOTED ON ARRIVAL. LUNGS CTA, BOWEL SOUNDS PRESENT. IV FLUIDS DISCONTINUED. IV ZOSYN RUNNING ORDERED. PAITIENT REQUESTING IV DILAUDID. OFFERED PERCOCET THAT IS WITHIN TIME LIMITS. PT AGREED. PO PERCOCET GIVEN ORDERED. DR. DEMPSEY ROUNDED ON PT THIS AM.
--- NOTE | 2021-05-14 12:46 | NUR ---
The patient may tentatively transfer to [facility] today. DONNA met with the patient to follow up ask about her children. The patient states that her children are with their father. She asked that SW contact and update her sister, Zoltan. DONNA contacted Zoltan and gave her an update. It was reported that the patient took home medications yesterday that were not prescibed and she was stumbling in the halls and did not make sense. She thought that the robbins were fish. DONNA made a CPS report. Intake ID#[id number].
--- NOTE | 2021-05-14 16:43 | NUR ---
PT TO SURGERY AT THIS TIME.
[2021-05-14 16:45] LABS: TB GOLD INTERPRETATION Indeterminate (Negative)
[2021-05-15 00:47] VITALS: BP 102/60; PULSE 71; TEMP 97.9
[2021-05-15 04:15] VITALS: BP 121/73; PULSE 76; TEMP 98.2
--- NOTE | 2021-05-15 06:33 | NUR ---
PATIENT ALERT AND ORIENTED X4. INDEPENDENT IN ROOM. NO NAUSEA/VOMITING THIS SHIFT. ABDOMEN INCISION NAZARIO, INTACT. IV ABX GIVEN ORDERED. DILAUDID AND PERCOCET GIVEN ORDERED FOR PAIN. WILL CONTINUE TO MONITOR.
[2021-05-15 06:56] LABS: BASO % 0.2 % (0.0-2.0); EOS # 0.1 (0.0-0.7); EOS % 0.7 % (0-4.0); GRAN # 6.7 (1.4-6.5); GRAN % 70.3 % (42.2-75.2); LYMPH # 1.9 (1.2-3.4); LYMPH % 20.3 % (20.0-51.0); MEAN CELL VOLUME 86 fl (80.0-100.0); MEAN CORPUSCULAR HGB CONC 32 g/dl (33.0-37.0); MEAN PLATELET VOLUME 10.5 fl (7.4-10.4); MONO # 0.7 (0.1-0.6); MONO % 7.6 % (1.7-9.3); PLATELET COUNT 448 K/mm3 (130-400); RED BLOOD COUNT 3.49 M/mm3 (4.10-5.30); REDCELL DISTRIBUTION WIDTH-CV 14.6 % (11.5-14.5)
[2021-05-15 07:11] LABS: CALCIUM 8.6 mg/dL (8.4-10.2); CREATININE, serum 0.49 (0.52-1.25)
[2021-05-15 07:21] LABS: HEMATOCRIT 30.1 % (37.0-47.0); HEMOGLOBIN 9.6 g/dl (12.5-16.0); MEAN CORPUSCULAR HEMOGLOBIN 28 pg (27.0-31.0)
[2021-05-15 09:31] VITALS: BP 108/63; PULSE 87; TEMP 98.4
--- NOTE | 2021-05-15 10:15 | NUR ---
Patient woke up in pain. She has been crying and saying she is having sharp pains to her abdomen. Denies nausea. Spoke with Peyton about giving an additional dose of dilauded, he agreed. Will be replacing potassium. Dr Todd is going to check again with [facility] about transferring her there. For now the plan is to have an EGD around lunch time. She is aware of this. She has been NPO. No other changes at this time. Call light within reach.
--- NOTE | 2021-05-15 10:21 | NUR ---
The patient has been accepted at [facility] and will transfer there today, 05/15. SW contacted and updated the patient's sister, Zoltan. No additional needs at this time.
--- NOTE | 2021-05-15 10:31 | NUR ---
Initial visit; Patient crying due to excessive pain that can't be handled by medication. Spot Worker offered comfort and a blessing that will hopefully calm Homa and help her rest and know that God is with her.
--- NOTE | 2021-05-15 11:30 | NUR ---
Patient will be going to today. Explained that she will transfer by ambulance and as soon as I have a time, I would leg her know. No other changes at this time.
[2021-05-15 12:00] VITALS: BP 108/67; PULSE 82; TEMP 98
[2021-05-15 12:56] LABS: ANGIOTENSIN CONVERTING ENZYME 12 U/L (16 - 85)
[2021-05-15 14:44] VITALS: BP 108/67; PULSE 82; TEMP 98
--- NOTE | 2021-05-15 15:40 | NUR ---
Patient is leaving to via EMS. All belongings packed up by patient and sent with her. Her pills from pharmacy sent with EMS. Report called to . IVF's stopped for transfer. She notified her family. Info packet sent with EMS.
--- NOTE | 2021-05-15 17:27 | NUR ---
TRANSFER ARRANGED TO [place] [id number] WITH [facility] TO TRANSPORT. DR. BISHOP ACCEPTS PATIENT. PATIENT AGREES TO TRANSFER. CONSENTS SIGNED. REPORT PHONE NUMBER IS [phone].
[2021-05-16 06:40] LABS: .HISTOPLASMA ANTIGEN SERUM None Detected (())
[2021-05-18 13:22] LABS: COCCIDIOIDES AB IGG Negative (Negative); COCCIDIOIDES AB IGM Negative (Negative); COCCIDIOIDES CF Negative (Negative)
== END 2021-05-15 15:45 | disposition short-term general hospital (02) | DRG 982 ==
LOC: COL.ER 17:23 → SURG 22:49
PROVIDERS: Emergency Medicine; Internal Medicine Pulmonary Disease; Physician Assistant; Student in an Organized Health Care Education/Training Program; ADMIT Internal Medicine
PROC: 0CC Mouth and Throat, Extirpation (ICD-10-PCS; 2021-05-14)
PROC: 0CCM8ZZ Extirpation of Matter from Pharynx, Via Natural or Artificial Opening Endoscopic (ICD-10-PCS; 2021-05-14)
PROC: 3E1F88Z Irrigation of Respiratory Tract using Irrigating Substance, Via Natural or Artificial Opening Endoscopic (ICD-10-PCS; 2021-05-14)
PROC: 0CC Mouth and Throat, Extirpation (ICD-10-PCS; principal; 2021-05-14 08:00)
DX: K95.89 Other complications of other bariatric procedure (principal); K92.0 Hematemesis; R04.2 Hemoptysis; R07.89 Other chest pain; E16.2 Hypoglycemia, unspecified; E87.6 Hypokalemia; G90.9 Disorder of the autonomic nervous system, unspecified; I95.9 Hypotension, unspecified; D64.9 Anemia, unspecified; G40.909 Epilepsy, unspecified, not intractable, without status epilepticus; G43.709 Chronic migraine without aura, not intractable, without status migrainosus; E78.5 Hyperlipidemia, unspecified; R00.1 Bradycardia, unspecified; G47.33 Obstructive sleep apnea (adult) (pediatric); F32.9 Major depressive disorder, single episode, unspecified; I25.10 Atherosclerotic heart disease of native coronary artery without angina pectoris; F41.9 Anxiety disorder, unspecified; F43.10 Post-traumatic stress disorder, unspecified; N63.0 Unspecified lump in unspecified breast; Z86.16 Personal history of COVID-19; Z88.1 Allergy status to other antibiotic agents; Z88.0 Allergy status to penicillin; Z88.8 Allergy status to other drugs, medicaments and biological substances
CPT/HCPCS: OP; 99223-AI; 99233-AI; 99239; C9113; G0378; J0456; J0692; J0696; J1170; J2405; J2543; J2704; J3475; J3480; J7030; J7050; J7512; Q9967

== ENCOUNTER → 2021-08-19 | Outpatient (CLI) | payer MEDICARE, MEDICAID ==
[2021-08-19 15:33] LABS: HEMOGLOBIN 11.8 g/dl (12.5-16.0); MEAN CELL VOLUME 86 fl (80.0-100.0); MEAN CORPUSCULAR HEMOGLOBIN 27 pg (27.0-31.0); MEAN CORPUSCULAR HGB CONC 32 g/dl (33.0-37.0); MEAN PLATELET VOLUME 10.9 fl (7.4-10.4); PLATELET COUNT 243 K/mm3 (130-400); REDCELL DISTRIBUTION WIDTH-CV 14.6 % (11.5-14.5)
[2021-08-19 15:37] LABS: HEMATOCRIT 36.9 % (37.0-47.0)
[2021-08-19 15:51] LABS: ALBUMIN 3.6 gm/dL (3.5-5.0); BILIRUBIN,TOTAL 0.3 mg/dL (0.2-1.2); CALCIUM 9.1 mg/dL (8.4-10.2); CREATININE, serum 0.67 mg/dL (0.57-1.11); POTASSIUM 4.2 mmol/L (3.5-4.5); TOTAL PROTEIN 6.6 gm/dL (6.2-8.1)
[2021-08-19 15:54] LABS: IRON,SERUM 83 ug/dL (50-175)
[2021-08-19 16:08] LABS: PRE ALBUMIN 19.9 mg/dL (17.6-36.0)
[2021-08-19 16:13] LABS: TOTAL IRON BINDING CAPACITY 289 ug/dL (265-497)
[2021-08-20 01:16] LABS: FOLATE (FOLIC ACID) 5.6 ng/mL (2.0-20.0)
== END ==
LOC: COL.LAB 14:57
PROVIDERS: Surgery
DX: D50.9 Iron deficiency anemia, unspecified (principal); Z98.84 Bariatric surgery status

== ENCOUNTER 2021-11-01 02:42 | Emergency (ER) | payer MEDICARE, MEDICAID ==
[~2021-11-01] VITALS: Ht 157.5 cm; Wt 50.0 kg
[2021-11-01 03:49] VITALS: BP 98/63; PULSE 82; TEMP 98.5
[2021-11-01 04:39] LABS: BASO % 0.5 % (0.0-2.0); EOS # 0.7 K/mm3 (0.0-0.7); EOS % 9.4 % (0-4.0); GRAN # 4.6 K/mm3 (1.4-6.5); GRAN % 58.6 % (42.2-75.2); HEMOGLOBIN 10.8 g/dl (12.5-16.0); LYMPH # 1.9 K/mm3 (1.2-3.4); LYMPH % 23.6 % (20.0-51.0); MEAN CELL VOLUME 90 fl (80.0-100.0); MEAN CORPUSCULAR HEMOGLOBIN 29 pg (27.0-31.0); MEAN CORPUSCULAR HGB CONC 32 g/dl (33.0-37.0); MEAN PLATELET VOLUME 11.2 fl (7.4-10.4); MONO # 0.6 K/mm3 (0.1-0.6); MONO % 7.6 % (1.7-9.3); PLATELET COUNT 232 K/mm3 (130-400); RED BLOOD COUNT 3.79 M/mm3 (4.10-5.30); REDCELL DISTRIBUTION WIDTH-CV 14.5 % (11.5-14.5)
[2021-11-01 04:40] LABS: HEMATOCRIT 34.1 % (37.0-47.0)
[2021-11-01 06:00] LABS: ALBUMIN 3.3 gm/dL (3.5-5.0); BILIRUBIN,TOTAL 0.2 mg/dL (0.2-1.2); CALCIUM 8.5 mg/dL (8.4-10.2); CREATININE, serum 0.59 mg/dL (0.57-1.11); TOTAL PROTEIN 5.8 gm/dL (6.2-8.1)
== END 2021-11-01 06:50 | disposition home or self-care (01) ==
LOC: COL.ER 02:42
PROVIDERS: Emergency Medicine
DX: J06.9 Acute upper respiratory infection, unspecified (principal); Z20.822 Contact with and (suspected) exposure to COVID-19; G43.909 Migraine, unspecified, not intractable, without status migrainosus; G40.909 Epilepsy, unspecified, not intractable, without status epilepticus; F43.10 Post-traumatic stress disorder, unspecified; Z79.899 Other long term (current) drug therapy; Z79.891 Long term (current) use of opiate analgesic
CPT/HCPCS: J1885; J2405; J7030

== ENCOUNTER 2021-11-01 07:06 | Emergency (ER) | payer MEDICARE, MEDICAID ==
[~2021-11-01] VITALS: Ht 157.5 cm; Wt 50.0 kg
[2021-11-01 07:58] VITALS: BP 116/81; TEMP 98.6
[2021-11-01 09:30] VITALS: PULSE 94
== END 2021-11-01 09:30 | disposition home or self-care (01) ==
LOC: COL.ER 07:06
DX: R51.9 Headache, unspecified (principal)
CPT/HCPCS: J2765

== ENCOUNTER → 2021-12-01 | Outpatient (CLI) | payer MEDICARE, MEDICAID ==
[2021-12-01 15:09] LABS: COLLECTION METHOD CLEAN CATCH
[2021-12-01 15:13] LABS: BASO % 0.5 % (0.0-2.0); EOS # 0.5 K/mm3 (0.0-0.7); EOS % 9.5 % (0.0-4.0); GRAN # 2.5 K/mm3 (1.4-6.5); GRAN % 45.7 % (42.2-75.2); HEMATOCRIT 41.2 % (37.0-47.0); HEMOGLOBIN 12.9 g/dl (12.5-16.0); LYMPH % 35.7 % (20.0-51.0); MEAN CELL VOLUME 88 fl (80.0-100.0); MEAN CORPUSCULAR HEMOGLOBIN 28 pg (27-31); MEAN CORPUSCULAR HGB CONC 31 g/dl (33.0-37.0); MEAN PLATELET VOLUME 11.4 fl (7.4-10.4); MONO # 0.5 K/mm3 (0.1-0.6); MONO % 8.4 % (1.7-9.3); PLATELET COUNT 254 K/mm3 (130-400); RED BLOOD COUNT 4.66 M/mm3 (4.10-5.30); REDCELL DISTRIBUTION WIDTH-CV 13.7 % (11.5-14.5)
[2021-12-01 15:34] LABS: ALBUMIN 3.9 gm/dL (3.5-5.0); BILIRUBIN,TOTAL 0.3 mg/dL (0.2-1.2); CALCIUM 8.9 mg/dL (8.4-10.2); CREATININE, serum 0.65 mg/dL (0.57-1.11); POTASSIUM 3.1 mmol/L (3.5-4.5); TOTAL PROTEIN 6.7 gm/dL (6.2-8.1)
[2021-12-01 15:37] LABS: MUCOUS Present (NOT PRESENT); PH 5 (5-8); URINE APPEARANCE Cloudy (CLEAR/HAZY); URINE BACTERIA None Seen /hpf (NONE SEEN); URINE BILIRUBIN Positive (NEGATIVE); URINE BLOOD Negative (NEGATIVE); URINE CALCIUM OXALATE CRYSTAL Present (NOT PRESENT); URINE COLOR Amber (YELLOW); URINE GLUCOSE Negative (NEGATIVE); URINE KETONE Trace (NEGATIVE); URINE LEUKOCYTE ESTERASE 1+ (NEGATIVE); URINE NITRATE Negative (NEGATIVE); URINE PROTEIN(semi-quant) 1+ (NEGATIVE)
== END ==
LOC: ZCOL.LAB 13:27
DX: R11.10 Vomiting, unspecified (principal); R50.9 Fever, unspecified; R05.9 Cough, unspecified; R43.9 Unspecified disturbances of smell and taste

== ENCOUNTER 2022-05-15 20:43 | Emergency (ER) | payer MEDICARE, MEDICAID ==
[~2022-05-15] VITALS: Ht 157.5 cm; Wt 45.5 kg
[~2022-05-15 20:43] MED LIST changes: +ASPERCREME LIDO73 ML TP; +CLIMARA 0.1 PATCH.W1 TD; +COPPER GLUCONATE PO; +ESTRACE0.1 MG/GM VG; +FLONASEALLERGY NS; +IRON TABLETS325 MG PO; +NATURAL POTASS595 MG PO; +NORTHERA300 PO; +PERCOCET 325 MG1 TAB PO; +SEROQUEL 200MG200 MG PO; +SYNTHROID0.088 MG/T PO; +VITAMIN B11000 MCG/M IM; +VITAMIN D250 MCG PO
[2022-05-15 21:49] LABS: BASO % 0.3 % (0.0-2.0); EOS # 0.7 K/mm3 (0.0-0.7); EOS % 5.7 % (0.0-4.0); GRAN # 8.9 K/mm3 (1.4-6.5); GRAN % 70.1 % (42.2-75.2); HEMOGLOBIN 12.1 g/dl (12.5-16.0); LYMPH # 1.9 K/mm3 (1.2-3.4); LYMPH % 15.1 % (20.0-51.0); MEAN CELL VOLUME 85 fl (80.0-100.0); MEAN CORPUSCULAR HEMOGLOBIN 27 pg (27-31); MEAN CORPUSCULAR HGB CONC 32 g/dl (33.0-37.0); MEAN PLATELET VOLUME 10.2 fl (7.4-10.4); MONO # 1.1 K/mm3 (0.1-0.6); MONO % 8.4 % (1.7-9.3); PLATELET COUNT 597 K/mm3 (130-400); RED BLOOD COUNT 4.49 M/mm3 (4.10-5.30); REDCELL DISTRIBUTION WIDTH-CV 23.5 % (11.5-14.5)
[2022-05-15] MEDS ORDERED: TYLENOL 325MG325 MG PO (22:04)
[2022-05-15] MEDS ORDERED: AIMOVIG AU70 MG/1 ML SQ (22:04)
[2022-05-15] MEDS ORDERED: CATAPRES 0.1MG0.1 MG PO (22:05)
[2022-05-15] MEDS ORDERED: CYMBALTA 60MG60 MG (22:07)
[2022-05-15 22:08] LABS: ALBUMIN 3.4 gm/dL (3.5-5.0); BILIRUBIN,TOTAL 0.3 mg/dL (0.2-1.2); CREATININE, serum 0.69 mg/dL (0.57-1.11); POTASSIUM 3.6 mmol/L (3.5-4.5); TOTAL PROTEIN 6.7 gm/dL (6.2-8.1)
[2022-05-15] MEDS ORDERED: TORADOL 10MG TA10 MG PO (22:09)
[2022-05-15] MEDS ORDERED: NARCAN .4MG0.4 MG/ML IJ (22:10)
[2022-05-15] MEDS ORDERED: NORTHERA (22:11)
[2022-05-15] MEDS ORDERED: K-TAB20 PO (22:13)
[2022-05-15] MEDS ORDERED: AMBIEN 5MG TABLE5 MG PO (22:14)
[2022-05-16 01:08] LABS: COLLECTION METHOD CLEAN CATCH
[2022-05-16 01:14] LABS: MUCOUS Present (NOT PRESENT); PH 5 (5-8); SQUAMOUS EPITHELIAL 0-2 /hpf (0-10); URINE APPEARANCE Clear (CLEAR/HAZY); URINE BACTERIA None Seen /hpf (NONE SEEN); URINE BILIRUBIN Negative (NEGATIVE); URINE BLOOD Negative (NEGATIVE); URINE COLOR Straw (YELLOW); URINE GLUCOSE Negative (NEGATIVE); URINE KETONE Negative (NEGATIVE); URINE LEUKOCYTE ESTERASE 1+ (NEGATIVE); URINE NITRATE Negative (NEGATIVE); URINE PROTEIN(semi-quant) Negative (NEGATIVE); URINE UROBILINOGEN Negative (NEGATIVE)
[2022-05-16] MEDS ORDERED: DAZIDOX20 MG PO (01:46)
[2022-05-16] MEDS ORDERED: BENTYL 10MG10 MG/CAP PO (01:47)
[2022-05-16 08:00] VITALS: BP 106/51; PULSE 88; TEMP 98.6
== END 2022-05-16 08:00 | disposition short-term general hospital (02) ==
LOC: COL.ER 20:43
PROVIDERS: Emergency Medicine
DX: A41.9 Sepsis, unspecified organism (principal); K66.8 Other specified disorders of peritoneum; R00.0 Tachycardia, unspecified; D72.829 Elevated white blood cell count, unspecified; Z86.16 Personal history of COVID-19
CPT/HCPCS: J1170; J2270; J3370; J7030; J7050; J7120; Q9967

== ENCOUNTER 2022-06-03 03:33 | Emergency (ER) | payer MEDICARE, MEDICAID ==
[~2022-06-03] VITALS: Ht 157.5 cm; Wt 45.5 kg
[~2022-06-03 03:33] MED LIST changes: +BENTYL 10MG10 MG/CAP PO; +DAZIDOX20 MG PO; +NARCAN .4MG0.4 MG/ML IJ; +NORTHERA; +TYLENOL 325MG325 MG PO
[2022-06-03 03:44] VITALS: TEMP 98.7
[2022-06-03 04:42] LABS: BASO # 0.1 K/mm3 (0.0-0.2); BASO % 0.5 % (0.0-2.0); EOS # 0.3 K/mm3 (0.0-0.7); EOS % 3.4 % (0.0-4.0); GRAN # 7.1 K/mm3 (1.4-6.5); GRAN % 71.6 % (42.2-75.2); LYMPH # 1.3 K/mm3 (1.2-3.4); LYMPH % 12.9 % (20.0-51.0); MEAN CELL VOLUME 89 fl (80.0-100.0); MEAN CORPUSCULAR HGB CONC 32 g/dl (33.0-37.0); MEAN PLATELET VOLUME 10.4 fl (7.4-10.4); MONO # 1.1 K/mm3 (0.1-0.6); PLATELET COUNT 419 K/mm3 (130-400); RED BLOOD COUNT 3.35 M/mm3 (4.10-5.30)
[2022-06-03 04:43] LABS: HEMATOCRIT 29.7 % (37.0-47.0); HEMOGLOBIN 9.5 g/dl (12.5-16.0); MEAN CORPUSCULAR HEMOGLOBIN 28 pg (27-31)
[2022-06-03 04:58] LABS: ALBUMIN 2.3 gm/dL (3.5-5.0); CALCIUM 7.8 mg/dL (8.4-10.2); CREATININE, serum 0.48 mg/dL (0.57-1.11); TOTAL PROTEIN 4.8 gm/dL (6.2-8.1)
[2022-06-03 05:03] LABS: POTASSIUM 2.8 mmol/L (3.5-4.5)
[2022-06-03 05:11] LABS: BILIRUBIN,TOTAL 0.2 mg/dL (0.2-1.2)
[2022-06-03 06:20] LABS: COLLECTION METHOD CLEAN CATCH
[2022-06-03 06:50] LABS: MUCOUS Present (NOT PRESENT); PH 5 (5-8); URINE APPEARANCE Hazy (CLEAR/HAZY); URINE BACTERIA Rare /hpf (NONE SEEN); URINE BILIRUBIN Negative (NEGATIVE); URINE BLOOD Negative (NEGATIVE); URINE COLOR Yellow (YELLOW); URINE GLUCOSE Negative (NEGATIVE); URINE KETONE Trace (NEGATIVE); URINE LEUKOCYTE ESTERASE Trace (NEGATIVE); URINE NITRATE Positive (NEGATIVE); URINE PROTEIN(semi-quant) Negative (NEGATIVE); URINE UROBILINOGEN Negative (NEGATIVE)
[2022-06-03] MEDS ORDERED: MACROBID 1100 MG/CAP PO (07:18)
[2022-06-03 08:22] VITALS: BP 106/77; PULSE 96
--- NOTE | 2022-06-04 10:04 | NUR ---
Consult received on the patient. The patient discharged from the ED yesterday. The patient presented to the emergency department with an open gaping wound to the left lower abdomen with no dressing. She also had a colostomy at [facility] and there was no bag on her ostomy when she arrived. The patient reports that she has no more bags and cannot keep up with the dressing. DONNA contacted the patient. The patient states that she was going to do home health, but it did not work out. She states that she has an appointment at the wound care clinic in [place] next week and she is eager for this appointment. DONNA inquired who did the surgery. The patient states that Dr. Falcon at [facility] in [place] did the surgery and had originally sent her home with the ostomoy supplies. She states that she has been emailing him back and fourth. DONNA discussed the idea of Dr. Falcon's office sending her more supplies. The patient states that she will ask him. DONNA attempted to contact Dr. Falcon's RN. DONNA left her a voicemail. DONNA made an APS report. Intake ID#[id number].
--- NOTE | 2022-06-04 11:29 | NUR ---
The patient's RN with Dr. Falcon returned 's phone call. The RN reports that the patient is a mess. She states that they typically do not supply ostomy supplies, but do have some on hand. She states that the patient informed them that her supplies were going to be delivered at the end of the week, so their social sciences chair went ahead and gave the patient 10 bags last Tuesday. The RN reports there is is no way the patient could have gone through all those bags by yesterday. She states that the patient also has a wound vac that they placed on her last Tuesday, but the patient keeps taking the wound vac off. She reports that the patient was set up with home health, but the home health agency fired her for safety concerns at home. She reports that they do have another appointment with the patient next . She reports that she can E-Script more ostomoy bags and supplies to a local DME company for the patient. She plans to contact and send a script to [facility] in [place].
== END 2022-06-03 08:30 | disposition home or self-care (01) ==
LOC: COL.ER 03:33
PROVIDERS: Emergency Medicine
DX: S31.104A Unspecified open wound of abdominal wall, left lower quadrant without penetration into peritoneal cavity, initial encounter (principal); N30.00 Acute cystitis without hematuria; Z90.49 Acquired absence of other specified parts of digestive tract; Z98.84 Bariatric surgery status; X58.XXXA Exposure to other specified factors, initial encounter
CPT/HCPCS: J0696; J2270; J7030; Q9967

== ENCOUNTER 2022-06-20 11:46 | Emergency (ER) | payer MEDICARE, MEDICAID ==
[~2022-06-20] VITALS: Ht 157.5 cm; Wt 43.2 kg
[~2022-06-20 11:46] MED LIST changes: +MACROBID 1100 MG/CAP PO
[2022-06-20 12:31] LABS: BASO # 0.1 K/mm3 (0.0-0.2); BASO % 0.6 % (0.0-2.0); EOS # 0.4 K/mm3 (0.0-0.7); EOS % 3.4 % (0.0-4.0); GRAN # 7.8 K/mm3 (1.4-6.5); HEMOGLOBIN 10.7 g/dl (12.5-16.0); LYMPH # 1.1 K/mm3 (1.2-3.4); LYMPH % 10.7 % (20.0-51.0); MEAN CELL VOLUME 90 fl (80.0-100.0); MEAN CORPUSCULAR HEMOGLOBIN 29 pg (27-31); MEAN CORPUSCULAR HGB CONC 32 g/dl (33.0-37.0); MEAN PLATELET VOLUME 10.3 fl (7.4-10.4); MONO # 0.9 K/mm3 (0.1-0.6); MONO % 8.9 % (1.7-9.3); PLATELET COUNT 489 K/mm3 (130-400); RED BLOOD COUNT 3.75 M/mm3 (4.10-5.30); REDCELL DISTRIBUTION WIDTH-CV 16.5 % (11.5-14.5)
[2022-06-20 12:34] LABS: HEMATOCRIT 33.6 % (37.0-47.0)
[2022-06-20 12:46] LABS: BILIRUBIN,TOTAL 0.2 mg/dL (0.2-1.2); CALCIUM 8.6 mg/dL (8.4-10.2); CREATININE, serum 0.64 mg/dL (0.57-1.11); POTASSIUM 4.5 mmol/L (3.5-4.5); TOTAL PROTEIN 6.4 gm/dL (6.2-8.1)
[2022-06-20 16:06] VITALS: BP 98/68; PULSE 52
== END 2022-06-20 16:11 | disposition home or self-care (01) ==
LOC: COL.ER 11:46
PROVIDERS: Nurse Practitioner Primary Care
DX: S31.103A Unspecified open wound of abdominal wall, right lower quadrant without penetration into peritoneal cavity, initial encounter (principal); I10 Essential (primary) hypertension; R11.2 Nausea with vomiting, unspecified; R10.32 Left lower quadrant pain; Z90.49 Acquired absence of other specified parts of digestive tract; Z93.2 Ileostomy status; Z86.16 Personal history of COVID-19
CPT/HCPCS: A9270; J2270; J2405; J3010; J7030; Q9967

== ENCOUNTER 2022-09-20 08:30 | Outpatient (RCR) | payer MEDICARE, MEDICAID ==
[2022-08-23 08:45] VITALS: BP 94/64; PULSE 98; TEMP 98.8
[2022-08-27 09:16] VITALS: BP 105/72; PULSE 71; TEMP 98.2
[2022-09-03 08:23] VITALS: BP 96/65; PULSE 88; TEMP 97.9
[2022-09-10 08:56] VITALS: BP 100/64; PULSE 101; TEMP 98.3
[2022-09-17 08:15] VITALS: BP 107/72; PULSE 92; TEMP 98.5
[~2022-09-20] VITALS: Ht 157.5 cm; Wt 47.3 kg
[~2022-09-20 08:30] MED LIST changes: +CYMBALTA 60MG60 MG PO; +LEVAQUIN 2250 MG/TAB PO; +LEVAQUIN 5500 MG/TA1 PO
[2022-09-20 08:49] VITALS: BP 122/71; PULSE 90; TEMP 98.3
--- NOTE | 2022-09-20 12:23 | NUR ---
Pt requesting to stop infusion and go home.this nurse called provider,Jhony Olivier to see if we can finish last bag of LR at 999ml/hr so pt received entire bag ordered.Provider and patient agreed.
== END 2022-09-20 13:10 | disposition home or self-care (01) ==
LOC: EUO 08:30
DX: I95.9 Hypotension, unspecified (principal)
CPT/HCPCS: J1644; J2405; J7120